=== PATIENT | male | born 1930 | race Caucasian/White ===

== ENCOUNTER → 2016-09-18 | Outpatient (CLI) | payer MEDICARE, BC ==
--- NOTE | 2016-09-18 11:10 | CT ---
EXAMINATION TYPE: CT brain neck chest wo con DATE OF EXAM: 09/18/2016 10:37 AM HISTORY: Neck and Head CA Helical acquisition obtained through the brain neck and chest without contrast, correlation to CT PET scan dated 2014 CT DLP: 2414 mGycm Automated exposure control for dose reduction was used. FINDINGS: Brain: There is white matter demyelination in the periventricular locations. Cortical atrophy is pres ent. No hemorrhage, there is prominence of the ventricles. Difficult to exclude normal pressure hydro cephalus although findings may be due to cortical atrophy and are stable. The calvarium is intact. Pa ranasal sinuses and mastoid air cells as visualized are unremarkable. There is an open wound at the s uperior orbital scalp on the left extending into the frontal region. Difficult to exclude a small foc us of bone erosion at this level. NECK: No evident adenopathy. Lack of contrast could compromise sensitivity. Level the true and false cords are within normal limits. Salivary gland show a symmetric appearance. Degenerative disc changes are present in the visualized spine. Atherosclerotic vascular calcifications are noted along the dis tribution of the carotid arteries. Thyroid gland is somewhat heterogeneous. There is some streak benny fact due to dental work, the previously identified adenopathy deep to the sternocleidomastoid muscle on the left is no longer evident. CHEST: Mediastinal nodes are borderline enlarged in the right paratracheal location. Coronary artery calcifications are present. No pleural or pericardial effusion. Patient is post median sternotomy. Em physematous changes are present within the lungs. Ill-defined area of increased attenuation present i n the right upper lobe laterally on axial image 22 is stable. Calcified granuloma present in the righ t mid lung as on prior exam. Some basilar atelectatic change or scarring present on the left. IMPRESSION: MEDIASTINAL NODES MAY GROW SLIGHTLY IN THE INTERVAL ALTHOUGH THERE ARE DIFFERENCES IN TECHNIQUE. INTE RVAL IMPROVEMENT IN THE LEFT-SIDED NECK NODE. LOCAL FINDINGS AT THE LEVEL OF THE PATIENT'S OPEN WOUND IN THE SUPRAORBITAL REGION, ADDITIONAL FINDINGS ABOVE.
== END | disposition home or self-care (01) ==
LOC: RADCTMAIN 10:06
PROVIDERS: ATTEND Internal Medicine Hematology & Oncology
DX: C76.0 Malignant neoplasm of head, face and neck (principal)
CPT/HCPCS: 70450; 70490; 71250

== ENCOUNTER 2016-12-15 17:06 | Inpatient (IN) | payer MEDICARE, BC ==
[2016-12-15] MEDS ORDERED: SODIUM CHLORIDE 0.9% 1,000 ML IV STA (17:10)
--- NOTE | 2016-12-15 17:29 | ED ---
General Adult HPI - General Stated complaint: weakness Time Seen by Provider: 12/15/16 17:10 Source: RN notes reviewed, old records reviewed - History of Present Illness Initial comments: This is a patient to ED co significant weakness, juan m is poor historian brought in by EMS for evaluation of weaknss, history is obtained by EMS and patients chart - Related Data Home Medications Medication Instructions Recorded Confirmed Rivaroxaban [Xarelto] 15 mg PO HS 12/15/16 12/15/16 Previous Rx's Medication Instructions Recorded Aspirin EC [Ecotrin Low Dose] 81 mg PO DAILY #30 tablet. 02/08/14 Carvedilol [Coreg] 3.125 mg PO AC-BID #90 tab 02/08/14 Furosemide [Lasix] 40 mg PO DAILY #30 tab 02/08/14 Isosorbide Mononitrate [Imdur] 30 mg PO DAILY #30 tab 02/08/14 Lisinopril [Zestril] 5 mg PO DAILY #30 tab 02/08/14 Spironolactone [Aldactone] 25 mg PO DAILY #30 tab 02/08/14 Allergies Allergy/AdvReac Type Severity Reaction Status Date / Time iodine Allergy Severe Anaphylaxis Verified 12/15/16 17:29 shellfish derived Allergy Severe Anaphylaxis Verified 12/15/16 17:29 Review of Systems ROS Statement: Those systems with pertinent positive or pertinent negative responses have been documented in the HPI. ROS Other: All systems not noted in ROS Statement are negative. Past Medical History Past Medical History: Coronary Artery Disease (CAD), Myocardial Infarction ([place]) Last Myocardial Infarction Date:: 1981 History of Any Multi-Drug Resistant Organisms: None Reported Past Surgical History: Coronary Bypass/CABG Past Anesthesia/Blood Transfusion Reactions: No Reported Reaction Past Psychological History: No Psychological Hx Reported Smoking Status: Never smoker Past Alcohol Use History: None Reported Past Drug Use History: None Reported - Past Family History Father Family Medical History: No Reported History General Exam General appearance: alert, in no apparent distress, lethargic Head exam: Present: atraumatic, normocephalic, normal inspection Eye exam: Present: normal appearance, PERRL, EOMI. Absent: scleral icterus, conjunctival injection, periorbital swelling ENT exam: Present: normal exam, mucous membranes moist Neck exam: Present: normal inspection. Absent: tenderness, meningismus, lymphadenopathy Respiratory exam: Present: normal lung sounds bilaterally. Absent: respiratory distress, wheezes, rales, rhonchi, stridor Cardiovascular Exam: Present: regular rate, normal rhythm, normal heart sounds. Absent: systolic murmur, diastolic murmur, rubs, gallop, clicks GI/Abdominal exam: Present: soft, normal bowel sounds. Absent: distended, tenderness, guarding, rebound, rigid Extremities exam: Present: normal inspection, full ROM, normal capillary refill. Absent: tenderness, pedal edema, joint swelling, calf tenderness Back exam: Present: normal inspection Neurological exam: Present: alert, oriented X3, CN II-XII intact Psychiatric exam: Present: normal affect, normal mood Skin exam: Present: warm, dry, intact, normal color. Absent: rash Course Vital Signs 12/15/16 12/15/16 12/15/16 17:29 17:55 19:12 Temperature 97.8 F Pulse Rate 79 71 77 Respiratory 20 20 20 Rate Blood Pressure 155/94 119/88 121/69 O2 Sat by Pulse 95 97 98 Oximetry - Reevaluation(s) Reevaluation #1: 12/15/16 20:16 Concerned patient's multiple falls left rib pain increasing weakness and. Denies chest pain shortness of breath, patient also had syncopal event 12/15/16 20:20 He does state patient is single 2 days ago and again today when he was found on the ground by family and unable to get himself off the ground and sure how long he was down EKG Findings - EKG Comments: EKG Findings:: EKG shows sinus rhythm rate of 84, AR 170, QRS of 80, QTc 522 Medical Decision Making - Medical Decision Making 86 year for evaluation of syncope, multiple falls, weakness and inability to ambulate per her baseline, patient doesn't elevated troponin, dehydration, patient be admitted for rehydration and cardiac observation telemetry. - Lab Data Result diagrams: 12/15/16 17:25 12/15/16 17:25 Lab Results 12/15/16 12/15/16 12/15/16 Range/Units 17:25 17:25 17:25 WBC 7.5 (3.8-10.6) k/uL RBC 4.66 (4.30-5.90) m/uL Hgb 14.3 (13.0-17.5) gm/dL Hct 43.5 (39.0-53.0) % MCV 93.3 (80.0-100.0) fL MCH 30.7 (25.0-35.0) pg MCHC 32.9 (31.0-37.0) g/dL RDW 13.0 (11.5-15.5) % Plt Count 224 (150-450) k/uL Neutrophils % 83 % Lymphocytes % 6 % Monocytes % 7 % Eosinophils % 1 % Basophils % 1 % Neutrophils # 6.3 (1.3-7.7) k/uL Lymphocytes # 0.5 L (1.0-4.8) k/uL Monocytes # 0.5 (0-1.0) k/uL Eosinophils # 0.1 (0-0.7) k/uL Basophils # 0.0 (0-0.2) k/uL PT (9.0-12.0) sec INR (<1.1) APTT (22.0-30.0) sec Sodium 140 (137-145) mmol/L Potassium 4.9 (3.5-5.1) mmol/L Chloride 106 (98-107) mmol/L Carbon Dioxide 23 (22-30) mmol/L Anion Gap 11 mmol/L BUN 45 H (9-20) mg/dL Creatinine 1.61 H (0.66-1.25) mg/dL Est GFR (MDRD) Af Amer 49 (>60 ml/min/1.73 sqM) Est GFR (MDRD) Non-Af 41 (>60 ml/min/1.73 sqM) Glucose 97 (74-99) mg/dL Plasma Lactic Acid [place] (0.7-2.0) mmol/L Calcium 9.5 (8.4-10.2) mg/dL Phosphorus 3.1 (2.5-4.5) mg/dL Magnesium 2.2 (1.6-2.3) mg/dL Total Bilirubin 1.2 (0.2-1.3) mg/dL AST 23 (17-59) U/L ALT 19 L (21-72) U/L Alkaline Phosphatase 77 (38-126) U/L Total Creatine Kinase 86 (55-170) U/L CK-MB (CK-2) 1.5 (0.0-2.4) ng/mL CK-MB (CK-2) Rel Index 1.7 Troponin I 0.066 H* (0.000-0.034) ng/mL NT-Pro-B Natriuret Pep pg/mL Total Protein 7.9 (6.3-8.2) g/dL Albumin 4.0 (3.5-5.0) g/dL TSH 2.300 (0.465-4.680) mIU/L Urine Color Urine Appearance (Clear) Urine pH (5.0-8.0) Ur Specific [place] (1.001-1.035) Urine Protein (Negative) Urine Glucose (UA) (Negative) Urine Ketones (Negative) Urine Blood (Negative) Urine Nitrite (Negative) Urine Bilirubin (Negative) Urine Urobilinogen (<2.0) mg/dL Ur Leukocyte Esterase (Negative) 12/15/16 12/15/16 12/15/16 Range/Units 17:25 17:25 17:25 WBC (3.8-10.6) k/uL RBC (4.30-5.90) m/uL Hgb (13.0-17.5) gm/dL Hct (39.0-53.0) % MCV (80.0-100.0) fL MCH (25.0-35.0) pg MCHC (31.0-37.0) g/dL RDW (11.5-15.5) % Plt Count (150-450) k/uL Neutrophils % % Lymphocytes % % Monocytes % % Eosinophils % % Basophils % % Neutrophils # (1.3-7.7) k/uL Lymphocytes # (1.0-4.8) k/uL Monocytes # (0-1.0) k/uL Eosinophils # (0-0.7) k/uL Basophils # (0-0.2) k/uL PT 11.1 (9.0-12.0) sec INR 1.1 (<1.1) APTT 23.1 (22.0-30.0) sec Sodium (137-145) mmol/L Potassium (3.5-5.1) mmol/L Chloride (98-107) mmol/L Carbon Dioxide (22-30) mmol/L Anion Gap mmol/L BUN (9-20) mg/dL Creatinine (0.66-1.25) mg/dL Est GFR (MDRD) Af Amer (>60 ml/min/1.73 sqM) Est GFR (MDRD) Non-Af (>60 ml/min/1.73 sqM) Glucose (74-99) mg/dL Plasma Lactic Acid [place] 1.5 (0.7-2.0) mmol/L Calcium (8.4-10.2) mg/dL Phosphorus (2.5-4.5) mg/dL Magnesium (1.6-2.3) mg/dL Total Bilirubin (0.2-1.3) mg/dL AST (17-59) U/L ALT (21-72) U/L Alkaline Phosphatase (38-126) U/L Total Creatine Kinase (55-170) U/L CK-MB (CK-2) (0.0-2.4) ng/mL CK-MB (CK-2) Rel Index Troponin I (0.000-0.034) ng/mL NT-Pro-B Natriuret Pep 3490 pg/mL Total Protein (6.3-8.2) g/dL Albumin (3.5-5.0) g/dL TSH (0.465-4.680) mIU/L Urine Color Urine Appearance (Clear) Urine pH (5.0-8.0) Ur Specific [place] (1.001-1.035) Urine Protein (Negative) Urine Glucose (UA) (Negative) Urine Ketones (Negative) Urine Blood (Negative) Urine Nitrite (Negative) Urine Bilirubin (Negative) Urine Urobilinogen (<2.0) mg/dL Ur Leukocyte Esterase (Negative) 12/15/16 Range/Units 19:05 WBC (3.8-10.6) k/uL RBC (4.30-5.90) m/uL Hgb (13.0-17.5) gm/dL Hct (39.0-53.0) % MCV (80.0-100.0) fL MCH (25.0-35.0) pg MCHC (31.0-37.0) g/dL RDW (11.5-15.5) % Plt Count (150-450) k/uL Neutrophils % % Lymphocytes % % Monocytes % % Eosinophils % % Basophils % % Neutrophils # (1.3-7.7) k/uL Lymphocytes # (1.0-4.8) k/uL Monocytes # (0-1.0) k/uL Eosinophils # (0-0.7) k/uL Basophils # (0-0.2) k/uL PT (9.0-12.0) sec INR (<1.1) APTT (22.0-30.0) sec Sodium (137-145) mmol/L Potassium (3.5-5.1) mmol/L Chloride (98-107) mmol/L Carbon Dioxide (22-30) mmol/L Anion Gap mmol/L BUN (9-20) mg/dL Creatinine (0.66-1.25) mg/dL Est GFR (MDRD) Af Amer (>60 ml/min/1.73 sqM) Est GFR (MDRD) Non-Af (>60 ml/min/1.73 sqM) Glucose (74-99) mg/dL Plasma Lactic Acid [place] (0.7-2.0) mmol/L Calcium (8.4-10.2) mg/dL Phosphorus (2.5-4.5) mg/dL Magnesium (1.6-2.3) mg/dL Total Bilirubin (0.2-1.3) mg/dL AST (17-59) U/L ALT (21-72) U/L Alkaline Phosphatase (38-126) U/L Total Creatine Kinase (55-170) U/L CK-MB (CK-2) (0.0-2.4) ng/mL CK-MB (CK-2) Rel Index Troponin I (0.000-0.034) ng/mL NT-Pro-B Natriuret Pep pg/mL Total Protein (6.3-8.2) g/dL Albumin (3.5-5.0) g/dL TSH (0.465-4.680) mIU/L Urine Color Yellow Urine Appearance Clear (Clear) Urine pH 5.0 (5.0-8.0) Ur Specific [place] 1.017 (1.001-1.035) Urine Protein Negative (Negative) Urine Glucose (UA) Negative (Negative) Urine Ketones Negative (Negative) Urine Blood Negative (Negative) Urine Nitrite Negative (Negative) Urine Bilirubin Negative (Negative) Urine Urobilinogen <2.0 (<2.0) mg/dL Ur Leukocyte Esterase Negative (Negative) - Radiology Data Radiology results: report reviewed (CT brain, chest x-ray, pelvis x-ray and rib x-ray are negative for trichomoniasis injury), image reviewed Critical Care Time Critical Care Time: Yes Total Critical Care Time: 31 Disposition Clinical Impression: Weakness, Falls, NSTEMI (non-ST elevated myocardial infarction), Syncope Disposition: ADMITTED IP TO THIS [facility] Condition: Fair Referrals: Rich Og MD [Primary Care Provider] - 1-2 days
[2016-12-15 17:39] LABS: Basophils % (A) 1 %; CH 30.6; CHCM 32.9; Eosinophils # (A) 0.1 k/uL (0-0.7); Eosinophils % (A) 1 %; HCT 43.5 % (39.0-53.0); HGB 14.3 gm/dL (13.0-17.5); Luc # (Auto) 0.13; Luc % (Auto) 2; Lymphocytes # (A) 0.5 k/uL (1.0-4.8); Lymphocytes % (A) 6 %; MCH 30.7 pg (25.0-35.0); MCHC 32.9 g/dL (31.0-37.0); MCV 93.3 fL (80.0-100.0); Mean Platelet Volume 7.5; Monocytes # (A) 0.5 k/uL (0-1.0); Monocytes % (A) 7 %; Neutrophils # (A) 6.3 k/uL (1.3-7.7); Neutrophils % (A) 83 %; RBC 4.66 m/uL (4.30-5.90); WBC 7.5 k/uL (3.8-10.6); WBC (Perox) 7.51
[2016-12-15 17:49] LABS: Calcium 9.5 mg/dL (8.4-10.2); INR 1.1 (<1.1); Magnesium 2.2 mg/dL (1.6-2.3); Partial Thromboplastin Time 23.1 sec (22.0-30.0); Phosphorous 3.1 mg/dL (2.5-4.5); Potassium 4.9 mmol/L (3.5-5.1); Prothrombin Time 11.1 sec (9.0-12.0); Total Bilirubin 1.2 mg/dL (0.2-1.3); Total Protein 7.9 g/dL (6.3-8.2)
--- NOTE | 2016-12-15 17:55 | XR ---
EXAMINATION TYPE: XR chest 2V DATE OF EXAM: 12/15/2016 5:42 PM COMPARISON: Prior chest x-ray dated 07 February 2014 HISTORY: Chest pain, shortness of breath, fall TECHNIQUE: Frontal and lateral views of the chest are obtained. FINDINGS: Patient is post median sternotomy and rotated. There are overlying cardiac leads. Heart is enlarged and stable. No pneumothorax or pleural effusion evident. Prominent lung volume may be indic ative of COPD. There are coronary artery calcifications. IMPRESSION: No acute cardiopulmonary disease. Bone scan may be of increased sensitivity.
[2016-12-15 18:15] LABS: Creatine Kinase MB 1.5 ng/mL (0.0-2.4)
[2016-12-15 18:24] LABS: Troponin I 0.066 ng/mL (0.000-0.034)
--- NOTE | 2016-12-15 18:28 | CT ---
EXAMINATION TYPE: CT brain wo con DATE OF EXAM: 12/15/2016 6:16 PM COMPARISON: Prior head CT 18 September 2016 HISTORY: Recent falls x2. CT DLP: 943.8 mGycm Automated exposure control for dose reduction was used. FINDINGS: There is no acute intracranial hemorrhage, mass effect, or midline shift identified. The ventricles and sulci are stable in size. Cortical atrophy is again noted, ventricles remain prominent, there is periventricular white matter demyelination as on prior exam, difficult to exclude normal pressure hy drocephalus. The globes are intact and the visualized sinuses are clear. IMPRESSION: No acute intracranial hemorrhage, mass effect, or midline shift is seen. Findings described above.
[2016-12-15 19:30] LABS: Appearance,Urine Clear (Clear); Bilirubin,Urine Negative (Negative); Glucose,Urine (UA) Negative (Negative); Ketones,Urine Negative (Negative); Leukocyte Esterase,Urine Negative (Negative); Nitrite,Urine Negative (Negative); Protein,Urine Negative (Negative); Specific Gravity,Urine 1.017 (1.001-1.035); UA Billing (MACRO vs. MICRO) CHEM; Urobilinogen,Urine <2.0 mg/dL (<2.0)
--- NOTE | 2016-12-15 20:03 | XR ---
AP pelvis HISTORY: Trauma, pain Single frontal view of the pelvis No comparisons Bone mineralization is reduced. Vascular calcifications are noted within the pelvis. Surgical clip pr esent within the soft tissues of the proximal left lower extremity. Alignment and joint spaces are ma intained. Degenerative disc changes in the visualized spine. IMPRESSION: No acute fracture or dislocation is evident. Follow-up as indicated. Osteopenia. Degenera tive disc disease.
--- NOTE | 2016-12-15 20:06 | XR ---
Left RIBS HISTORY: Trauma and pain 4 views of the left ribs correlated to prior chest x-ray 15 December 2016 No significant interval change. Bone mineralization is reduced. This may limit sensitivity. No displa haritha rib fracture is evident. IMPRESSION: Consider bone scan for increased sensitivity as indicated should occult fracture be suspe cted clinically.
[2016-12-15] MEDS ORDERED: HEPARIN SODIUM,PORCINE 5,000 UNIT/ML 1 ML VIAL IV ONE (20:11)
[2016-12-15] MEDS ORDERED: NITROGLYCERIN SL TABS 0.4 MG TAB SUBLINGUAL PRN (20:11)
[2016-12-15] MEDS ORDERED: HEPARIN SODIUM,PORCINE 5,000 UNIT/ML 1 ML VIAL IV PRN (20:11)
[2016-12-15] MEDS ORDERED: ASPIRIN 81 MG CHEW PO STA (20:11)
[2016-12-15] MEDS ORDERED: HEPARIN SODIUM,PORCINE/D5W PMX 25,000 UNIT in DEXTROSE/WATER 1 500ML.BAG IV SCH (20:15)
[2016-12-15] MEDS ORDERED: MORPHINE SULFATE 4 MG/ML SYRINGE IVP PRN (20:21)
[2016-12-15] MEDS: MORPHINE SULFATE 4 MG/ML SYRINGE IV PRN (20:54)
[2016-12-15] MEDS: SODIUM CHLORIDE 0.9% 1,000 ML IV SCH (20:58)
[2016-12-15 22:34] VITALS: BMI 21.2
[2016-12-16 00:34] LABS: Creatine Kinase MB 1.4 ng/mL (0.0-2.4)
[2016-12-16 00:52] LABS: Troponin I 0.076 ng/mL (0.000-0.034)
[2016-12-16 06:22] LABS: Mean Platelet Volume 7.1
[2016-12-16 06:31] LABS: Cholesterol 133 mg/dL (<200); HDL Cholesterol 43 mg/dL (40-60); Triglycerides 61 mg/dL (<150)
[2016-12-16] MEDS: SODIUM CHLORIDE 0.9% 1,000 ML IV SCH ×3 (06:38→21:02)
[2016-12-16 06:56] LABS: Creatine Kinase MB 1.6 ng/mL (0.0-2.4)
[2016-12-16 07:02] LABS: Troponin I 0.077 ng/mL (0.000-0.034)
[2016-12-16] MEDS: ATORVASTATIN 80 MG TAB PO SCH (08:53)
[2016-12-16] MEDS ORDERED: ASPIRIN 325 MG TAB PO SCH (09:00)
--- NOTE | 2016-12-16 11:21 | P.CRDCN ---
History of Present Illness Consult date: 12/16/16 Requesting physician: Rich Og Consult reason: sycope Chief complaint: Syncope History of present illness: This is an 86-year-old gentleman with history of coronary artery disease and prior bypass surgery, paroxysmal atrial fibrillation, hypertension, hyperlipidemia, mild memory impairment, renal disease, history of squamous cell carcinoma with prior radiation, he presented to the hospital following 2 syncopal episodes. Most of the history was obtained from the daughter who is at the bedside. Patient apparently lives alone, he had an episode where he passed out suddenly on Friday, he did not mention any of this to his children, he again had an episode on Friday. According to the patient he is standing up when both episodes occurred, he denies any dizziness at the time, no lightheadedness, no chest discomfort, no warning prior to passing out at all. Patient was seen here in the hospital in 2013, an echo was done at that time which revealed an ejection fraction of less than 20%. Patient follows only with Dr. Og in the office. The pressure on arrival here 155/90 with a heart rate in the 70s to 80s, 95% on room air. EKG on arrival showed a normal sinus rhythm with first-degree AV block, right bundle branch block pattern and left anterior fascicular block. Occasional PACs. 6 ran admission did not reveal any acute cardiopulmonary disease. CAT scan of the brain did not reveal any acute intracranial hemorrhage, mass effect or midline shift. Pelvic x-ray did not reveal any acute fracture. Rib x-ray suggested consideration for bone scan for increased sensitivity, showed an occult fracture be suspected. CBC normal, potassium 4.9, BUN 45, creatinine 1.6. BNP 3490. Troponin 0.06.07.07. TSH 2.3. At the time of my examination this morning, patient denies any dizziness or lightheadedness. Past Medical History Past Medical History: Atrial Fibrillation, Coronary Artery Disease (CAD), Cancer , Heart Failure, Hyperlipidemia, Hypertension, Memory Impairment, Myocardial Infarction ([place]), Prostate Disorder, Renal Disease, Syncope Additional Past Medical History / Comment(s): Squamous-cell carcinoma left side of forehead, radiation therapy 2 years ago. Last Myocardial Infarction Date:: 1981 History of Any Multi-Drug Resistant Organisms: None Reported Past Surgical History: Coronary Bypass/CABG Past Anesthesia/Blood Transfusion Reactions: No Reported Reaction Past Psychological History: No Psychological Hx Reported Smoking Status: Never smoker Past Alcohol Use History: None Reported Past Drug Use History: None Reported - Past Family History Father Family Medical History: No Reported History Medications and Allergies Home Medications Medication Instructions Recorded Confirmed Type Rivaroxaban [Xarelto] 15 mg PO HS 12/15/16 12/15/16 History Allergies Allergy/AdvReac Type Severity Reaction Status Date / Time iodine Allergy Severe Anaphylaxis Verified 12/15/16 17:29 shellfish derived Allergy Severe Anaphylaxis Verified 12/15/16 17:29 Physical Exam Vitals: Vital Signs Temp Pulse Pulse Resp BP BP Pulse Ox 12/16/16 08:00 96.9 F L 65 18 130/71 96 12/16/16 04:00 97 F L 77 18 144/72 97 12/16/16 00:00 97 F L 67 18 147/67 97 12/15/16 21:30 97.5 F L 66 18 138/67 96 12/15/16 21:03 98 F 72 20 136/82 96 Intake and Output 12/15/16 12/16/16 12/16/16 22:59 06:59 14:59 Intake Total 1800 Output Total 400 Balance 1400 Intake: Intake, IV Titration 1800 Amount Sodium Chloride 0.9% 1, 800 000 ml @ 100 mls/hr IV . Q10H DANIELLA Rx#:[id number] Sodium Chloride 0.9% 1, 1000 000 ml @ 999 mls/hr IV . Q1H1M STA Rx#:[id number] Output: Urine/Stool Mix 400 Other: Voiding Method Bedside Commode Bedside Commode Urinal Urinal # Voids 0 # Bowel Movements 1 1 Weight 68.853 kg PHYSICAL EXAMINATION: HEENT: Head is atraumatic, normocephalic. Pupils equal, round. Neck is supple. There is no elevated jugular venous pressure. HEART EXAMINATION: R S1 and S2 systolic murmur is heard. CHEST EXAMINATION: Lungs are clear to auscultation and precussion. No chest wall tenderness is noted on palpation or with deep breathing. ABDOMEN: Soft, nontender. Bowel sounds are heard. No organomegaly noted. EXTREMITIES: 2+ peripheral pulses with no evidence of peripheral edema and no calf tenderness noted. NEUROLOGIC patient is awake, alert and oriented -3. . Results 12/16/16 06:05 12/15/16 17:25 Cardiac Enzymes 12/15/16 12/16/16 Range/Units 22:55 06:05 CK-MB (CK-2) 1.4 1.6 (0.0-2.4) ng/mL Troponin I 0.076 H* 0.077 H* (0.000-0.034) ng/mL Coagulation 12/16/16 Range/Units 01:38 APTT 25.7 (22.0-30.0) sec Lipids 12/16/16 Range/Units 06:05 Triglycerides 61 (<150) mg/dL Cholesterol 133 (<200) mg/dL HDL Cholesterol 43 (40-60) mg/dL CBC 12/16/16 Range/Units 06:05 Plt Count 187 (150-450) k/uL Current Medications Generic Name Dose Route Start Last Admin Trade Name Freq PRN Reason Stop Dose Admin Aspirin 81 mg 12/17/16 09:00 Aspirin PO DAILY [facility] Atorvastatin Calcium 80 mg 12/16/16 09:00 12/16/16 08:53 Lipitor PO 80 mg DAILY [facility] Administration Carvedilol 3.125 mg 12/16/16 10:00 Coreg PO AC-BID [facility] Sodium Chloride 1,000 mls @ 75 mls/hr 12/16/16 10:15 Saline 0.9% IV .[id number] [facility] Isosorbide Mononitrate 30 mg 12/16/16 10:00 Imdur PO DAILY [facility] Lisinopril 5 mg 12/16/16 10:15 Zestril PO DAILY [facility] Morphine Sulfate 4 mg 12/15/16 20:11 12/15/16 20:54 Morphine Sulfate (Inj) IV 4 mg Q4HR PRN Administration Chest Pain Morphine Sulfate 4 mg 12/15/16 20:21 Morphine Sulfate (Inj) IVP Q4HR PRN Pain Nitroglycerin 0.4 mg 12/15/16 20:11 Nitrostat SUBLINGUAL Q5M PRN Chest Pain Rivaroxaban 15 mg 12/16/16 21:00 Xarelto PO [facility] Intake and Output 12/15/16 12/16/16 12/16/16 22:59 06:59 14:59 Intake Total 1800 Output Total 400 Balance 1400 Intake: Intake, IV Titration 1800 Amount Sodium Chloride 0.9% 1, 800 000 ml @ 100 mls/hr IV . Q10H [facility] Rx#:[id number] Sodium Chloride 0.9% 1, 1000 000 ml @ 999 mls/hr IV . Q1H1M STA Rx#:[id number] Output: Urine/Stool Mix 400 Other: Voiding Method Bedside Commode Bedside Commode Urinal Urinal # Voids 0 # Bowel Movements 1 1 Weight 68.853 kg 12/16/16 06:05 EKG Interpretations (text) EKG shows normal sinus rhythm with first-degree AV block and right bundle branch block pattern and left anterior fascicular block, occasional PAC Assessment and Plan Plan: Assessment and plan # 1 syncope, we will check the patient's orthostatics, we will also continue to monitor for any tachycardia or bradycardia arrhythmias. #2 known history of coronary artery disease with prior bypass surgery #3 ischemic cardiomyopathy #4 hypertension #5 hyperlipidemia #6 mild memory impairment #7 history of squamous cell carcinoma on the forehead, with prior radiation. #8 acute on chronic renal disease #9 paroxysmal atrial fibrillation #10 abnormal troponins, not consistent with acute coronary syndrome. Plan We will repeat an echocardiogram with Doppler study. We will check orthostatic blood pressure and heart rate every shift, continue to monitor for any tachycardia or bradycardia arrhythmias. If patient does require a pacemaker, this may be considered, because of the patient's age, he is not felt to be a candidate for AICD at this time. We will maximize his medical therapy. Daughter is also requesting a consult with social service as the patient lives alone and she feels he is unsafe there. We will continue aspirin 81 mg daily, Lipitor 80 mg daily, Coreg 3.125 mg twice a day, Imdur 30 mg daily, lisinopril 5 mg daily, and xarelto. DNP note has been reviewed, I agree with a documented findings and plan of care. Patient was seen and examined.
[2016-12-16] MEDS: CARVEDILOL 3.125 MG TAB PO SCH ×2 (11:41→18:00)
[2016-12-16] MEDS: LISINOPRIL 5 MG TAB PO SCH (11:41)
[2016-12-16] MEDS: ISOSORBIDE MONONITRATE ER 30 MG TAB.ER.24H PO SCH (11:41)
--- NOTE | 2016-12-16 12:10 | ECHOF ---
Referral Reason:LVF MEASUREMENTS -------- HEIGHT: 157.5 cm WEIGHT: 68.5 kg BP: 130/71 RVIDd: 2.8 cm (< 3.3) IVSd: 1.1 cm (0.6 - 1.1) LVIDd: 6.2 cm (3.9 - 5.3) LVPWd: 0.8 cm (0.6 - 1.1) IVSs: 1.3 cm LVIDs: 4.4 cm LVPWs: 1.2 cm LA Diam: 3.5 cm (2.7 - 3.8) Ao Diam: 3.4 cm (2.0 - 3.7) AV Cusp: 1.6 cm (1.5 - 2.6) LA Diam: 4.3 cm (2.7 - 3.8) MV EXCURSION: 19.089 mm (> 18.000) MV EF SLOPE: 62 mm/s (70 - 150) EPSS: 1.9 cm MV E Oleg: 0.26 m/s MV DecT: 203 ms MV A Oleg: 0.58 m/s MV E/A Ratio: 0.45 RAP: 5.00 mmHg RVSP: 18.23 mmHg FINDINGS -------- Sinus rhythm. This was a techncally difficult study with suboptimal views, , Definity utilized for enhancement of images. There is mild concentric left ventricular hypertrophy. There is severe global hypokinesis of LV . Overall left ventricular systolic function is moderate-severely impaired with, an EF between 30 - 35 %. The right ventricle is normal in size. The left atrial size is normal. The right atrial size is normal. 1.5MG OF DEFINITY UTLIZED: 2 OR MORE WALL SEGMENTS NOT VISUALIZED. There is mild aortic valve sclerosis. There is no evidence of aortic regurgitation. Mild mitral annular calcification present. Mild mitral regurgitation is present. Mild tricuspid regurgitation present. The right ventricular systolic pressure, as measured by Doppler, is 18.23mmHg. There is no pulmonic regurgitation present. The aortic root size is normal. There is no pericardial effusion. CONCLUSIONS -------- 1. This was a techncally difficult study with suboptimal views, , Definity utilized for enhancement of images. 2. There is no pericardial effusion. 3. There is mild concentric left ventricular hypertrophy. 4. 1.5MG OF DEFINITY UTLIZED: 2 OR MORE WALL SEGMENTS NOT VISUALIZED. 5. There is mild aortic valve sclerosis. 6. Mild mitral annular calcification present. 7. Mild mitral regurgitation is present. 8. Mild tricuspid regurgitation present. 9. The right ventricular systolic pressure, as measured by Doppler, is 18.23mmHg. 10. The aortic root size is normal. [employer] SUPERVISOR: Vera Ambriz RDCS
--- NOTE | 2016-12-16 13:27 | P.HPIM ---
History of Present Illness H&P Date: 12/16/16 Chief Complaint: Syncope This is an 86-year-old male one of Dr. Og with a previous medical history significant for CAD post CABG 3 back in 1997, with ischemic cardiopathy , chronic atrial fibrillation, hyperlipidemia, hypertension and hypertensive cardio vascular disease, memory impairment, possible prostate cancer, patient lives alone and he gets some help from his family members including his daughter , patient stated that on Friday he was standing in the kitchen is back to the [employer] and suddenly he passed out without any warning symptoms he was not dizzy or lightheaded at that time. Patient lost consciousness for a few seconds and he found himself on the floor he ended up the skinning his left knee and left elbow, and that time his daughter wanted to bring into the emergency department on Friday evening however the patient refused, patient did well after 48 hours until yesterday when he developed to have his another syncopal episode while standing up without any dizziness or lightheadedness at that time. Without any palpitation he came to the ER and he had some significant pain in the left rib cage, x-ray did not show any evidence of any fracture however the patient was admitted to hospital for possible cardiac arrhythmias. His troponin was slightly elevated however did not appear to have an acute coronary syndrome. Review of Systems Constitutional: Reports malaise, Reports weakness, Reports weight loss, Denies anorexia, Denies chronic headaches, Denies chronic pain, Denies lethargy Eyes: bilateral blurred vision, bilateral decreased vision, denies bulging eye Ears: bilateral: decreased hearing Ears, nose, mouth and throat: Denies dysphagia, Denies neck lump, Denies sore throat, Denies vertigo Cardiovascular: Reports decreased exercise tolerance, Reports dyspnea on exertion, Reports high blood pressure, Reports irregular heart beat, Reports shortness of breath, Reports syncope, Denies chest pain, Denies phlebitis, Denies rapid heart beat Respiratory: Denies congestion, Denies cough, Denies cough with sputum, Denies home oxygen, Denies sleep apnea, Denies snoring, Denies wheezing Gastrointestinal: Denies abdominal pain, Denies bloating, Denies BRBPR, Denies excessive gas, Denies heartburn, Denies hematemesis, Denies melena, Denies nausea, Denies vomiting Genitourinary: Reports nocturia, Reports polyuria, Denies dysuria, Denies hematuria Musculoskeletal: Reports atrophy, Reports frequent falls, Reports gait dysfunction, Reports low back pain Musculoskeletal: absent: ankle pain, ankle stiffness, ankle swelling, elbow pain , elbow stiffness, elbow swelling, foot pain, foot stiffness, foot swelling, hand pain, hand stiffness, hand swelling, hip pain, hip stiffness, hip swelling , knee pain, knee stiffness, knee swelling, shoulder pain, shoulder stiffness, shoulder swelling, wrist pain, wrist stiffness, wrist swelling Integumentary: Denies pruritus, Denies rash Neurological: Reports gait dysfunction, Reports memory loss, Reports weakness, Denies numbness Psychiatric: Reports memory loss, Denies anxiety, Denies depression Endocrine: Denies fatigue, Denies weight change Past Medical History Past Medical History: Atrial Fibrillation, Coronary Artery Disease (CAD), Cancer , Heart Failure, Hearing Disorder / Deafness, Hyperlipidemia, Hypertension, Memory Impairment, Myocardial Infarction ([place]), Osteoarthritis (OA), Prostate Disorder, Renal Disease, Syncope Additional Past Medical History / Comment(s): Squamous-cell carcinoma left side of forehead, radiation therapy 2 years ago. Last Myocardial Infarction Date:: 1981 History of Any Multi-Drug Resistant Organisms: None Reported Past Surgical History: Coronary Bypass/CABG (Patient did have a CABG back in 11/1997, also did have a squamous cell resection from the left side of the for head followed by radiation therapy but years ago.) Past Anesthesia/Blood Transfusion Reactions: No Reported Reaction Past Psychological History: No Psychological Hx Reported Smoking Status: Never smoker Past Alcohol Use History: None Reported Past Drug Use History: None Reported - Past Family History Father Family Medical History: No Reported History (Father at age of 34 from suicide) Mother Family Medical History: Myocardial Infarction ([place]) (Mother at age of 87 from [place]) Brother(s) Family Medical History: Cancer, Coronary Artery Disease (CAD) (Patient had 2 brothers one from diabetes competition the other one from CAD the third one had CAD but he passed from prostate cancer.), Diabetes Mellitus Sister(s) Family Medical History: No Reported History (Patient had 2 sisters one of them at age of 16 from suicide) Medications and Allergies Home Medications Medication Instructions Recorded Confirmed Type Rivaroxaban [Xarelto] 15 mg PO HS 12/15/16 12/15/16 History Allergies Allergy/AdvReac Type Severity Reaction Status Date / Time iodine Allergy Severe Anaphylaxis Verified 12/15/16 17:29 shellfish derived Allergy Severe Anaphylaxis Verified 12/15/16 17:29 Physical Exam Vitals: Vital Signs Temp Pulse Pulse Resp BP BP Pulse Ox 12/16/16 12:00 65 18 12/16/16 08:00 96.9 F L 65 18 130/71 96 12/16/16 04:00 97 F L 77 18 144/72 97 12/16/16 00:00 97 F L 67 18 147/67 97 12/15/16 21:30 97.5 F L 66 18 138/67 96 12/15/16 21:03 98 F 72 20 136/82 96 Intake and Output 12/15/16 12/16/16 12/16/16 22:59 06:59 14:59 Intake Total 1800 Output Total 400 Balance 1400 Intake: Intake, IV Titration 1800 Amount Sodium Chloride 0.9% 1, 800 000 ml @ 100 mls/hr IV . Q10H [facility] Rx#:[id number] Sodium Chloride 0.9% 1, 1000 000 ml @ 999 mls/hr IV . Q1H1M [facility] Rx#:[id number] Output: Urine/Stool Mix 400 Other: Voiding Method Bedside Commode Bedside Commode Urinal Urinal # Voids 0 # Bowel Movements 1 1 Weight 68.853 kg - Constitutional General appearance: disheveled, mild distress, thin - EENT Eyes: anicteric sclerae, EOMI, PERRLA, no ptosis, no scleral icterus, normal appearance ENT: hard of hearing, NA/AT, normal oropharynx, no thrush Ears: bilateral: normal - Neck Neck: no lymphadenopathy, normal ROM, no rigidity, no stridor, no thyromegaly Carotids: bilateral: upstroke delayed Thyroid: bilateral: normal size - Respiratory Respiratory: bilateral: diminished, negative: dullness, rales, rhonchi, wheezing , prolonged expiration, prolonged inspiration - Cardiovascular Rhythm: irregularly irregular Heart sounds: normal: S1, S2 Abnormal Heart Sounds: systolic murmur, no rub, no click - Gastrointestinal General gastrointestinal: normal bowel sounds, soft, no splenomegaly, no tenderness, no umbilical hernia, no ventral hernia - Genitourinary Male genitourinary: enlarged prostate - Integumentary Integumentary: normal, normal turgor - Neurologic Neurologic: CNII-XII intact - Musculoskeletal Musculoskeletal: generalized weakness, strength equal bilaterally - Psychiatric Psychiatric: A&O x's 3, appropriate affect, intact judgment & insight Results CBC & Chem 7: 12/16/16 06:05 12/15/16 17:25 Labs: Abnormal Lab Results - Last 24 Hours (Table) 12/15/16 12/16/16 Range/Units 22:55 06:05 Troponin I 0.076 H* 0.077 H* (0.000-0.034) ng/mL Thrombosis Risk Factor Assmnt - DVT/VTE Prophylaxis DVT/VTE Prophylaxis: Pharmacologic Prophylaxis ordered, Mechanical Prophylaxis ordered - Choose All That Apply Any of the Below Risk Factors Present?: Yes Each Factor Represents 1 point: Heart failure (<1month), Medical pt on bed rest Other Risk Factors: Yes Each Risk Factor Represents 3 Points: Age 75 years or older Thrombosis Risk Factor Assessment Total Risk Factor Score: 5 Thrombosis Risk Factor Assessment Level: High Risk Assessment and Plan Plan: Assessment and plan: 1. Syncope likely related to cardiac arrhythmias. Patient does appear to have a sinus rhythm with first degree AV block, patient is not a candidate for AICD because of his age at this time we'll monitor the patient very closely, we will check echocardiogram as well as ultrasound of the carotid. Cardiology consult. 2. CAD post CABG with ischemic cardiomyopathy. Continue aspirin 81 mg once every day, Lipitor 80 mg orally once every day, Imdur 30 mg orally once every day, Zestril 5 mg orally once every day and Coreg 3.125 mg orally twice every day. 3. Hypertension and hypertensive cardiovascular disease. Continue with Coreg 3.125 mg orally twice every day, Zestril 5 mg orally once every day. 4. Hyperlipidemia. Continue Lipitor 80 mg orally once every day. 5. Chronic atrial flutter ablation. Continue Xarelto 15 mg orally once every day. 6. 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 7. Possible prostate cancer. Watchful waiting. 8. Acute kidney injury and top of chronic kidney disease stage III. He shouldn 't receive IV fluid resuscitation overnight and we'll Hep-Lock his IV. 9. DVT prophylaxis. Currently on Xarelto 15 mg orally once every day. 10. GI prophylaxis. Continue PPI. 11. 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 12. Macular degeneration. Stable at this time. 13. Debility. Physical therapy evaluation. 14. Patient is no code. discussed with the patient and his daughter at the bedside. 15. Admit to inpatient. Estimate a length of stay 2 midnights.
[2016-12-16] MEDS: MORPHINE SULFATE 4 MG/ML SYRINGE IV PRN (14:38)
--- NOTE | 2016-12-16 16:59 | US ---
EXAMINATION TYPE: US carotid duplex BILAT DATE OF EXAM: 12/16/2016 4:46 PM COMPARISON: NONE CLINICAL HISTORY: 86-year-old male LVF. Syncope. TECHNIQUE: Carotid duplex ultrasound examination. In direct Doppler criteria was utilized. FINDINGS: Very mild atherosclerotic changes are present at the bifurcations. EXAM MEASUREMENTS: RIGHT: Peak Systolic Velocity (PSV) cm/sec ----- Right CCA: 75.6 ----- Right ICA: 55.5 ----- Right ECA: 73.0 ICA/CCA ratio: 0.7 RIGHT: End Diastole cm/sec ----- Right CCA: 17.1 ----- Right ICA: 18.0 ----- Right ECA: 5.9 LEFT: Peak Systolic Velocity (PSV) cm/sec ----- Left CCA: 64.5 ----- Left ICA: 68.9 ----- Left ECA: 75.9 ICA/CCA ratio: 1.1 LEFT: End Diastole cm/sec ----- Left CCA: 12.8 ----- Left ICA: 24.9 ----- Left ECA: 3.9 VERTEBRALS (direction of flow): Right Vertebral: Antegrade Left Vertebral: Antegrade IMPRESSION: No hemodynamically significant stenosis appreciated in either internal carotid artery. Criteria for Assigning % of Stenosis / Diameter reduction (Estimation based on the indirect measurements of the internal carotid artery velocities (ICA PSV). 1. Normal (no stenosis)=ICA PSV < 125 cm/s: ratio < 2.0: ICA EDV<40 cm/s. 2. Less than 50% stenosis=ICA PSV < 125 cm/s: ratio < 2.0: ICA EDV<40 cm/s. 3. 50 to 69% stenosis=ICA PSV of 125 to 230 cm/s: ration 2.0 ? 4.0: ICA EDV 40-100 cm/s. 4. Greater than 70% stenosis to near occlusion= ICA PSV > 230 cm/s: ratio > 4.0: ICA EDV > 100 cm/s. 5. Near occlusion= ICA PSV velocities may be low or undetectable: variable ratio and ICA EDV. 6. Total occlusion=unable to detect flow.
[2016-12-16] MEDS: RIVAROXABAN 15 MG TAB PO SCH (21:02)
[2016-12-17] MEDS: MORPHINE SULFATE 4 MG/ML SYRINGE IV PRN (02:19)
[2016-12-17 02:21] LABS: Glucose,Whole Blood 89 mg/dL (75-99)
[2016-12-17 02:41] LABS: Basophils % (A) 0 %; CHCM 31.6; Eosinophils # (A) 0.2 k/uL (0-0.7); Eosinophils % (A) 3 %; HCT 38.9 % (39.0-53.0); HDW 2.35; HGB 12.4 gm/dL (13.0-17.5); Luc # (Auto) 0.18; Luc % (Auto) 3; Lymphocytes # (A) 0.9 k/uL (1.0-4.8); Lymphocytes % (A) 13 %; MCH 30.4 pg (25.0-35.0); MCHC 31.8 g/dL (31.0-37.0); MCV 95.4 fL (80.0-100.0); Mean Platelet Volume 6.9; Monocytes # (A) 0.5 k/uL (0-1.0); Monocytes % (A) 7 %; Neutrophils # (A) 5.1 k/uL (1.3-7.7); Neutrophils % (A) 73 %; RBC 4.08 m/uL (4.30-5.90); RDW 13.1 % (11.5-15.5); WBC 6.9 k/uL (3.8-10.6); WBC (Perox) 7.56
[2016-12-17 06:39] LABS: Basophils % (A) 0 %; CHCM 32.2; Eosinophils # (A) 0.2 k/uL (0-0.7); Eosinophils % (A) 3 %; HCT 35.2 % (39.0-53.0); HDW 2.51; HGB 11.6 gm/dL (13.0-17.5); Luc # (Auto) 0.18; Luc % (Auto) 3; Lymphocytes # (A) 0.5 k/uL (1.0-4.8); Lymphocytes % (A) 9 %; MCH 30.8 pg (25.0-35.0); MCV 93.5 fL (80.0-100.0); Mean Platelet Volume 6.8; Monocytes # (A) 0.4 k/uL (0-1.0); Monocytes % (A) 8 %; Neutrophils # (A) 4.5 k/uL (1.3-7.7); Neutrophils % (A) 77 %; RBC 3.77 m/uL (4.30-5.90); RDW 12.8 % (11.5-15.5); WBC 5.8 k/uL (3.8-10.6); WBC (Perox) 5.71
[2016-12-17] MEDS: CARVEDILOL 3.125 MG TAB PO SCH ×2 (06:39→16:58)
[2016-12-17 06:47] LABS: Calcium 8.6 mg/dL (8.4-10.2); Magnesium 1.9 mg/dL (1.6-2.3); Potassium 4.6 mmol/L (3.5-5.1); Total Bilirubin 0.7 mg/dL (0.2-1.3); Total Protein 5.6 g/dL (6.3-8.2)
[2016-12-17] MEDS ORDERED: SPIRONOLACTONE 25 MG TAB PO SCH (09:00)
[2016-12-17] MEDS: ASPIRIN 81 MG CHEW PO SCH (09:43)
[2016-12-17] MEDS: ATORVASTATIN 80 MG TAB PO SCH (09:43)
[2016-12-17] MEDS: ISOSORBIDE MONONITRATE ER 30 MG TAB.ER.24H PO SCH (09:49)
--- NOTE | 2016-12-17 12:00 | P.PN ---
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 Patient lost consciousness for a few seconds and he found himself on the floor he ended up the skinning his left knee and left elbow, and that time his daughter wanted to bring into the emergency department on Friday evening however the patient refused, patient did well after 48 hours until yesterday when he developed to have his another syncopal episode while standing up without any dizziness or lightheadedness at that time. Without any palpitation he came to the ER and he had some significant pain in the left rib cage, x-ray did not show any evidence of any fracture however the patient was admitted to hospital for possible cardiac arrhythmias. His troponin was slightly elevated however did not appear to have an acute coronary syndrome. 12/17: Heart rate is running 60-100. Orthostatics were positive. Patient apparently had some confusion during the night and difficulty with shortness of breath with cough and hemoptysis which is improved at this time. Echocardiogram was suboptimal with mild concentric left hypertrophy, mild aortic valve sclerosis, mild mitral regurgitation, mild tricuspid regurgitation. Triglycerides 61, cholesterol 133, LDH 78, HDL 43. Carotid ultrasound was negative. CAT scan of the chest ordered. Patient's daughter is meeting with social work for discharge planning for subacute rehab. Objective - Vital Signs Vital signs: Vital Signs Temp 99.1 F 12/17/16 03:00 Pulse 86 12/17/16 03:00 Resp 14 12/17/16 03:38 BP 139/73 12/17/16 03:00 Pulse Ox 93 L 12/17/16 03:00 Intake & Output 12/16/16 12/17/16 12/17/16 18:59 06:59 18:59 Intake Total 1755 375 240 Output Total 600 Balance 1755 -225 240 Weight 70.5 kg Intake: Intake, IV Titration 775 375 Amount Sodium Chloride 0.9% 1, 775 375 000 ml @ 75 mls/hr IV . [id number] [facility] Rx#:[id number] Oral 980 240 Output: Urine 250 Urine/Stool Mix 350 Other: Voiding Method Bedside Commode Urinal # Voids 2 # Bowel Movements 1 - Exam - Constitutional General appearance: disheveled, mild distress, thin - EENT Eyes: anicteric sclerae, EOMI, PERRLA, no ptosis, no scleral icterus, normal appearance ENT: hard of hearing, NA/AT, normal oropharynx, no thrush Ears: bilateral: normal - Neck Neck: no lymphadenopathy, normal ROM, no rigidity, no stridor, no thyromegaly Carotids: bilateral: upstroke delayed Thyroid: bilateral: normal size - Respiratory Respiratory: bilateral: diminished, negative: dullness, rales, rhonchi, wheezing , prolonged expiration, prolonged inspiration - Cardiovascular Rhythm: irregularly irregular Heart sounds: normal: S1, S2 Abnormal Heart Sounds: systolic murmur, no rub, no click - Gastrointestinal General gastrointestinal: normal bowel sounds, soft, no splenomegaly, no tenderness, no umbilical hernia, no ventral hernia - Genitourinary Male genitourinary: enlarged prostate - Integumentary Integumentary: normal, normal turgor - Neurologic Neurologic: CNII-XII intact - Labs CBC & Chem 7: 12/17/16 05:53 12/17/16 05:53 Labs: Abnormal Lab Results - Last 24 Hours (Table) 12/17/16 12/17/16 12/17/16 Range/Units 02:17 05:53 05:53 RBC 4.08 L 3.77 L (4.30-5.90) m/uL Hgb 12.4 L 11.6 L (13.0-17.5) gm/dL Hct 38.9 L 35.2 L (39.0-53.0) % Lymphocytes # 0.9 L 0.5 L (1.0-4.8) k/uL Chloride 109 H (98-107) mmol/L BUN 33 H (9-20) mg/dL Creatinine 1.70 H (0.66-1.25) mg/dL Total Protein 5.6 L (6.3-8.2) g/dL Albumin 2.8 L (3.5-5.0) g/dL Assessment and Plan Plan: 1. Syncope likely related to orthostatic changes. Patient does appear to have a sinus rhythm with first degree AV block, patient is not a candidate for AICD because of his age at this time we'll monitor the patient very closely, we will check echocardiogram as well as ultrasound of the carotid. Cardiology consult. 2. CAD post CABG with ischemic cardiomyopathy. Continue aspirin 81 mg once every day, Lipitor 80 mg orally once every day, Imdur 30 mg orally once every day, Zestril 5 mg orally once every day and Coreg 3.125 mg orally twice every day. 3. Hypertension and hypertensive cardiovascular disease. Continue with Coreg 3.125 mg orally twice every day, Zestril 5 mg orally once every day. 4. Hyperlipidemia. Continue Lipitor 80 mg orally once every day. 5. Chronic atrial flutter ablation. Continue Xarelto 15 mg orally once every day. 6. 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 7. Possible prostate cancer. Watchful waiting. 8. Acute kidney injury and top of chronic kidney disease stage III. He shouldn 't receive IV fluid resuscitation overnight and we'll Hep-Lock his IV. 9. DVT prophylaxis. Currently on Xarelto 15 mg orally once every day. 10. GI prophylaxis. Continue PPI. 11. 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 12. Macular degeneration. Stable at this time. 13. Debility. Physical therapy evaluation. 14. Patient is no code. discussed with the patient and his daughter at the bedside. 15. Admit to inpatient. Estimate a length of stay 2 midnights. Discharge plan: Subacute rehab Impression and plan of care have been directed as dictated by the signing physician. Venus Blair nurse practitioner acting as scribe for signing physician. Time with Patient: Greater than 30
[2016-12-17] MEDS: LISINOPRIL 5 MG TAB PO SCH (12:10)
--- NOTE | 2016-12-17 12:44 | CT ---
EXAMINATION TYPE: CT chest wo con DATE OF EXAM: 12/17/2016 11:28 AM COMPARISON: PET/CT April 22, 2015 HISTORY: Hemoptysis CT DLP: 502 mGycm. Automated Exposure Control for Dose Reduction was Utilized. TECHNIQUE: CT scan of the thorax is performed without IV contrast. FINDINGS: LUNGS: Mild underlying emphysematous change is felt present. There is new tiny left pleural effusion or fluid collection. There is new left hilar nodular consolidation near axial image 28. Bronchi remai n patent. There is dependent atelectatic change in the left lung base. There is additional patchy rig ht lower lobe atelectasis and/or scarring. Scattered subcentimeter nodularity is felt stable, for ref erence 4 mm nodule right mid lung on axial image 30 is not significantly changed. The 6 mm nodule rig ht midlung anteriorly on axial image 27 is not significantly changed. MEDIASTINUM: Lack of IV contrast is noted to limit evaluation for mediastinal and especially hilar ad enopathy. There remain prominent thoracic lymph nodes for reference borderline paratracheal and estrella carinal lymph nodes on axial image 20 are stable. There are several additional borderline right parat lizbet lymph nodes extending superiorly redemonstrated. No significant pericardial effusion is seen. Post CABG changes with mediastinal clips and sternal wires is redemonstrated. Mild cardiomegaly is n ow present. OTHER: Bilateral gynecomastia is redemonstrated. A 2.2 cm simple hepatic cyst right hepatic lobe on a xial image 59 is redemonstrated. A simple appearing 1.8 cm cyst posteriorly upper to mid pole level r ight kidney on axial image 64 is redemonstrated. Osseous structures are somewhat demineralized. Sligh t underlying scoliotic curvature is now present. There is multilevel spurring in the visualized thora cic spine redemonstrated. IMPRESSION: Persistent borderline thoracic adenopathy. Consider granulomatous disease or sarcoidosis. Stable small right lung nodules. New tiny left pleural effusion. New left hilar nodular consolidatio n favoring postinflammatory etiology. Consider repeat PET/CT follow-up.
--- NOTE | 2016-12-17 15:42 | P.PN ---
Subjective This is an 86-year-old gentleman with history of coronary artery disease and prior bypass surgery, paroxysmal atrial fibrillation, hypertension, hyperlipidemia, mild memory impairment, renal disease, history of squamous cell carcinoma with prior radiation, he presented to the hospital following 2 syncopal episodes. Most of the history was obtained from the daughter who is at the bedside. Patient apparently lives alone, he had an episode where he passed out suddenly on Friday, he did not mention any of this to his children, he again had an episode on Friday. According to the patient he is standing up when both episodes occurred, he denies any dizziness at the time, no lightheadedness, no chest discomfort, no warning prior to passing out at all. Patient was seen here in the hospital in 2013, an echo was done at that time which revealed an ejection fraction of less than 20%. Patient follows only with Dr. Og in the office. The pressure on arrival here 155/90 with a heart rate in the 70s to 80s, 95% on room air. EKG on arrival showed a normal sinus rhythm with first-degree AV block, right bundle branch block pattern and left anterior fascicular block. Occasional PACs. Patient had orthostatics obtained which were significantly positive. He was initiated on bilateral SEAN hose stockings. Orthosis are mildly improved today with hydration. Blood pressure 140/70 lying 120/70 sitting and 118/70 standing. Objective - Vital Signs Vital signs: Vital Signs Temp 98 F 12/17/16 12:00 Pulse 63 12/17/16 12:00 Resp 16 12/17/16 12:00 BP 140/78 12/17/16 14:40 Pulse Ox 97 12/17/16 12:00 Intake & Output 12/16/16 12/17/16 12/17/16 18:59 06:59 18:59 Intake Total 1755 375 600 Output Total 600 300 Balance 1755 -225 300 Weight 70.5 kg Intake: Intake, IV Titration 775 375 Amount Sodium Chloride 0.9% 1, 775 375 000 ml @ 75 mls/hr IV . [id number] [facility] Rx#:[id number] Oral 980 600 Output: Urine 250 300 Urine/Stool Mix 350 Other: Voiding Method Bedside Commode Bedside Commode Urinal Urinal # Voids 2 1 # Bowel Movements 1 - Exam PHYSICAL EXAMINATION: HEENT: Head is atraumatic, normocephalic. Pupils equal, round. Neck is supple. There is no elevated jugular venous pressure. HEART EXAMINATION: R S1 and S2 systolic murmur is heard. CHEST EXAMINATION: Lungs are clear to auscultation and precussion. No chest wall tenderness is noted on palpation or with deep breathing. ABDOMEN: Soft, nontender. Bowel sounds are heard. No organomegaly noted. EXTREMITIES: 2+ peripheral pulses with no evidence of peripheral edema and no calf tenderness noted. NEUROLOGIC patient is awake, alert and oriented -3. - Labs CBC & Chem 7: 12/17/16 05:53 12/17/16 05:53 Labs: Abnormal Lab Results - Last 24 Hours (Table) 12/17/16 12/17/16 12/17/16 Range/Units 02:17 05:53 05:53 RBC 4.08 L 3.77 L (4.30-5.90) m/uL Hgb 12.4 L 11.6 L (13.0-17.5) gm/dL Hct 38.9 L 35.2 L (39.0-53.0) % Lymphocytes # 0.9 L 0.5 L (1.0-4.8) k/uL Chloride 109 H (98-107) mmol/L BUN 33 H (9-20) mg/dL Creatinine 1.70 H (0.66-1.25) mg/dL Total Protein 5.6 L (6.3-8.2) g/dL Albumin 2.8 L (3.5-5.0) g/dL Assessment and Plan Plan: Assessment and plan # 1 syncope, nephrectomy positive orthostatic hypotension. #2 known history of coronary artery disease with prior bypass surgery #3 ischemic cardiomyopathy #4 hypertension #5 hyperlipidemia #6 mild memory impairment #7 history of squamous cell carcinoma on the forehead, with prior radiation. #8 acute on chronic renal disease #9 paroxysmal atrial fibrillation #10 abnormal troponins, not consistent with acute coronary syndrome. Plan We will continue with the bilateral SEAN hose stockings. Continue to monitor for any tachycardia or bradycardia arrhythmias. Once the patient is discharged home from the hospital we would recommend placement of an event monitor to continue to monitor whether the patient is having any significant pauses or arrhythmias. DNP note has been reviewed, I agree with a documented findings and plan of care. Patient was seen and examined.
[2016-12-17] MEDS: RIVAROXABAN 15 MG TAB PO SCH (20:08)
[2016-12-17 22:48] VITALS: RESP 18
[2016-12-18] MEDS: CARVEDILOL 3.125 MG TAB PO SCH (06:46)
[2016-12-18 07:29] LABS: CH 29.7; CHCM 31.5; HCT 37.1 % (39.0-53.0); HDW 2.41; HGB 11.9 gm/dL (13.0-17.5); MCH 30.3 pg (25.0-35.0); MCV 94.6 fL (80.0-100.0); RBC 3.92 m/uL (4.30-5.90); RDW 13.3 % (11.5-15.5); WBC 5.6 k/uL (3.8-10.6)
[2016-12-18 07:44] LABS: Calcium 8.7 mg/dL (8.4-10.2); Potassium 4.1 mmol/L (3.5-5.1)
[2016-12-18] MEDS: ATORVASTATIN 80 MG TAB PO SCH (09:38)
[2016-12-18] MEDS: ASPIRIN 81 MG CHEW PO SCH (09:38)
[2016-12-18] MEDS: ISOSORBIDE MONONITRATE ER 30 MG TAB.ER.24H PO SCH (09:38)
[2016-12-18 11:21] LABS: Glucose,Whole Blood 127 mg/dL (75-99)
[2016-12-18] MEDS: LISINOPRIL 5 MG TAB PO SCH (12:09)
--- NOTE | 2016-12-18 12:11 | P.DS ---
Providers Date of admission: 12/15/16 20:11 Expected date of discharge: 12/18/16 Attending physician: Rich Og Primary care [facility]: [facility] Course: This is an 86-year-old male one of Dr. Og with a previous medical history significant for CAD post CABG 3 back in 1997, with ischemic cardiopathy , chronic atrial fibrillation, hyperlipidemia, hypertension and hypertensive cardio vascular disease, memory impairment, possible prostate cancer, patient lives alone and he gets some help from his family members including his daughter , patient stated that on Friday he was standing in the kitchen is back to the [facility] and suddenly he passed out without any warning symptoms he was not dizzy or lightheaded at that time. Patient lost consciousness for a few seconds and he found himself on the floor he ended up the skinning his left knee and left elbow, and that time his daughter wanted to bring into the emergency department on Friday evening however the patient refused, patient did well after 48 hours until yesterday when he developed to have his another syncopal episode while standing up without any dizziness or lightheadedness at that time. Without any palpitation he came to the ER and he had some significant pain in the left rib cage, x-ray did not show any evidence of any fracture however the patient was admitted to hospital for possible cardiac arrhythmias. His troponin was slightly elevated however did not appear to have an acute coronary syndrome. 12/17: Heart rate is running 60-100. Orthostatics were positive. Patient apparently had some confusion during the night and difficulty with shortness of breath with cough and hemoptysis which is improved at this time. Echocardiogram was suboptimal with mild concentric left hypertrophy, mild aortic valve sclerosis, mild mitral regurgitation, mild tricuspid regurgitation. Triglycerides 61, cholesterol 133, LDH 78, HDL 43. Carotid ultrasound was negative. CAT scan of the chest ordered. Patient's daughter is meeting with social work for discharge planning for subacute rehab. 12/18: CT of the chest shows persistent borderline thoracic adenopathy. Consider granulomatosis disease or sarcoidosis. Stable small right lung nodules. New tiny left pleural effusion. New left hilar nodular consolidation favoring postinflammatory etiology. Consider repeat PET scan. Repeat BUN 34 and creatinine 1.54. KRISTEL, Sandor, rheumatoid factor all ordered and to be obtained prior to discharge to [facility] today in stable condition. [facility]. Discharge diagnoses: 1. Syncope due to orthostatic hypotension. 2. CAD post CABG with ischemic cardiomyopathy. 3. Hypertension and hypertensive cardiovascular disease. 4. Hyperlipidemia. 5. Chronic atrial flutter ablation. 6. 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 7. Possible prostate cancer. Watchful waiting. 8. Acute kidney injury and top of chronic kidney disease stage III. 9. 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 10. Macular degeneration. Stable at this time. Discharge plan: [facility] under the care of Dr. Rico. Impression and plan of care have been directed as dictated by the signing physician. Venus Blair nurse practitioner acting as scribe for signing physician. + Patient Condition at Discharge: Good Plan - Discharge Summary Discharge Medication List Aspirin EC [Ecotrin Low Dose] 81 mg PO DAILY #30 tablet. 02/08/14 [Rx] Carvedilol [Coreg] 3.125 mg PO AC-BID #90 tab 02/08/14 [Rx] Furosemide [Lasix] 40 mg PO DAILY #30 tab 02/08/14 [Rx] Isosorbide Mononitrate [Imdur] 30 mg PO DAILY #30 tab 02/08/14 [Rx] Lisinopril [Zestril] 5 mg PO DAILY #30 tab 02/08/14 [Rx] Rivaroxaban [Xarelto] 15 mg PO HS 12/15/16 [History] Atorvastatin [Lipitor] 80 mg PO DAILY tab 12/18/16 [Rx] Spironolactone [Aldactone] 12.5 mg PO DAILY #30 tab 12/18/16 [Rx] Follow up Appointment(s)/Referral(s): [facility] [Provider Group] - 1 Week (For event monitor) Rich Og MD [Primary Care Provider] - 1 Week (After discharge from [facility]) Discharge Disposition: TRANSFER TO SNF/ECF
[2016-12-18 12:21] VITALS: BP 96/53; PULSE 81; TEMP 96.9
[2016-12-19 07:25] LABS: ANA w/Reflex to Titer POSITIVE (NEGATIVE)
== END 2016-12-18 14:43 | DRG 312 ==
LOC: EC 17:06 → 6SEL 20:11
PROVIDERS: ADMIT Internal Medicine Geriatric Medicine; ATTEND Internal Medicine Geriatric Medicine
DX: I95.1 Orthostatic hypotension (principal); N17.9 Acute kidney failure, unspecified; I48.92 Unspecified atrial flutter; I13.0 Hypertensive heart and chronic kidney disease with heart failure and stage 1 through stage 4 chronic kidney disease, or unspecified chronic kidney disease; I45.2 Bifascicular block; I50.9 Heart failure, unspecified; F03.90 Unspecified dementia, unspecified severity, without behavioral disturbance, psychotic disturbance, mood disturbance, and anxiety; E78.5 Hyperlipidemia, unspecified; I08.3 Combined rheumatic disorders of mitral, aortic and tricuspid valves; H35.30 Unspecified macular degeneration; H91.90 Unspecified hearing loss, unspecified ear; I25.10 Atherosclerotic heart disease of native coronary artery without angina pectoris; I25.2 Old myocardial infarction; I25.5 Ischemic cardiomyopathy; I44.0 Atrioventricular block, first degree; I48.0 Paroxysmal atrial fibrillation; I48.2 Chronic atrial fibrillation; N18.3 Chronic kidney disease, stage 3 (moderate); M19.90 Unspecified osteoarthritis, unspecified site; C61 Malignant neoplasm of prostate; Z79.01 Long term (current) use of anticoagulants; Z79.82 Long term (current) use of aspirin; Z79.899 Other long term (current) drug therapy; Z91.041 Radiographic dye allergy status; Z85.828 Personal history of other malignant neoplasm of skin; Z95.1 Presence of aortocoronary bypass graft; Z82.49 Family history of ischemic heart disease and other diseases of the circulatory system
CPT/HCPCS: 36415; 70450; 71020; 71250; 72170; 80048; 80053; 80061; 81003; 82164; 82550; 82553; 83605; 83735; 83880; 84100; 84443; 84484; 85025; 85027; 85049; 85610; 85730; 86038; 86039; 86431; 93005; 93306; 93880; 94760; 96361; 96374; 99285

== ENCOUNTER 2017-01-21 03:58 | Emergency (ER) | payer MEDICARE, BC ==
[2017-01-21 04:04] VITALS: RESP 18
--- NOTE | 2017-01-21 04:19 | ED ---
URI HPI - General Chief Complaint: Upper Respiratory Infection Stated Complaint: Coughing up Blood Time Seen by Provider: 01/21/17 04:00 Source: EMS Mode of arrival: EMS Limitations: no limitations - History of Present Illness Initial Comments: This patient is an 86-year-old man who presents to be evaluated for hemoptysis. The patient states that he was sleeping today just before 2:30 this morning when he woke with a cough and found that he was coughing small amounts of blood. Patient is not able to further characterize the amount. Patient denies any associated symptoms. He had not been having fever or chills. He is not having any dyspnea or diaphoresis. There was no associated chest pain. Patient has not been having any upper respiratory symptoms and does not believe that this was related to any epistaxis, as he was not having blood from the nares. The patient does take Xarelto. Complaint: other (Hemoptysis) Onset/Timin -: hour(s) Consistency: intermittent Improves With: nothing Worsens With: nothing - Related Data Home Medications Medication Instructions Recorded Confirmed Rivaroxaban [Xarelto] 15 mg PO HS 12/15/16 12/15/16 Previous Rx's Medication Instructions Recorded Aspirin EC [Ecotrin Low Dose] 81 mg PO DAILY #30 tablet. 02/08/14 Carvedilol [Coreg] 3.125 mg PO AC-BID #90 tab 02/08/14 Furosemide [Lasix] 40 mg PO DAILY #30 tab 02/08/14 Isosorbide Mononitrate [Imdur] 30 mg PO DAILY #30 tab 02/08/14 Lisinopril [Zestril] 5 mg PO DAILY #30 tab 02/08/14 Atorvastatin [Lipitor] 80 mg PO DAILY tab 12/18/16 Spironolactone [Aldactone] 12.5 mg PO DAILY #30 tab 12/18/16 Allergies Allergy/AdvReac Type Severity Reaction Status Date / Time iodine Allergy Severe Anaphylaxis Verified 01/21/17 04:04 shellfish derived Allergy Severe Anaphylaxis Verified 01/21/17 04:04 Review of Systems ROS Statement: Those systems with pertinent positive or pertinent negative responses have been documented in the HPI. ROS Other: All systems not noted in ROS Statement are negative. Constitutional: Denies: fever, chills ENT: Denies: throat pain, epistaxis, congestion Respiratory: Reports: cough, hemoptysis. Denies: dyspnea, wheezes Cardiovascular: Denies: chest pain, palpitations, syncope Gastrointestinal: Denies: abdominal pain, vomiting, diarrhea Skin: Denies: rash Neurological: Denies: headache, weakness, numbness Hematological/Lymphatic: Reports: other (Xarelto). Denies: easy bleeding Past Medical History Past Medical History: Atrial Fibrillation, Coronary Artery Disease (CAD), Cancer , Heart Failure, Hearing Disorder / Deafness, Hyperlipidemia, Hypertension, Memory Impairment, Myocardial Infarction (AR), Osteoarthritis (OA), Prostate Disorder, Renal Disease, Syncope Additional Past Medical History / Comment(s): Squamous-cell carcinoma left side of forehead, radiation therapy 2 years ago. Last Myocardial Infarction Date:: 1981 History of Any Multi-Drug Resistant Organisms: None Reported Past Surgical History: Coronary Bypass/CABG Past Anesthesia/Blood Transfusion Reactions: No Reported Reaction Past Psychological History: No Psychological Hx Reported Smoking Status: Never smoker Past Alcohol Use History: None Reported Past Drug Use History: None Reported - Past Family History Mother Family Medical History: Myocardial Infarction (AR) (Mother at age of 87 from AR) Brother(s) Family Medical History: Cancer, Coronary Artery Disease (CAD) (Patient had 2 brothers one from diabetes competition the other one from CAD the third one had CAD but he passed from prostate cancer.), Diabetes Mellitus Sister(s) Family Medical History: No Reported History (Patient had 2 sisters one of them at age of 16 from suicide) Father Family Medical History: No Reported History (Father at age of 34 from suicide) General Exam Limitations: no limitations General appearance: alert, in no apparent distress Head exam: Present: normocephalic, other (Patient has a bandage to the left forehead that he states was related to previous abrasion) Eye exam: Present: normal appearance ENT exam: Present: normal oropharynx, mucous membranes moist, other (No blood from the nares) Neck exam: Present: normal inspection Respiratory exam: Present: normal lung sounds bilaterally. Absent: respiratory distress, wheezes, rales, rhonchi, stridor Cardiovascular Exam: Present: regular rate. Absent: systolic murmur, diastolic murmur, rubs, gallop GI/Abdominal exam: Present: soft. Absent: tenderness, guarding, rebound Extremities exam: Present: normal inspection, normal capillary refill. Absent: pedal edema, calf tenderness Neurological exam: Present: alert Skin exam: Present: warm, dry, intact, normal color. Absent: rash, cyanosis, petechiae, pallor Course Vital Signs 01/21/17 01/21/17 01/21/17 03:58 05:27 06:09 Temperature 98.2 F Pulse Rate 82 64 60 Respiratory 18 18 18 Rate Blood Pressure 108/58 108/59 102/57 O2 Sat by Pulse 99 95 95 Oximetry Medical Decision Making - Medical Decision Making When the patient's daughter arrived at the bedside she was able to fill in some additional details of the history. The patient reportedly has had a pneumonia 2 weeks ago and was treated. Tonight for about 90 minutes, the patient would have intermittent cough with dime to nickel sized spots of dark red blood. The patient's workup here is unremarkable, and he has not had any further hemoptysis. The patient is feeling well and I did discuss further care with the patient and his daughter. At this point the patient desires to go home. He does have a physician appointment today with the cardiology clinic regarding possibility of having a pacemaker. This appointment is in approximately hour 20 minutes, and this point patient looks stable to keep this appointment, returning should the symptoms recur. The patient is advised to hold the Xarelto 24 hours, and call his physician to have close follow-up. Other return parameters discussed. - Lab Data Result diagrams: 01/21/17 04:10 01/21/17 04:10 Lab Results 01/21/17 01/21/17 01/21/17 Range/Units 04:10 04:10 04:10 WBC 5.7 (3.8-10.6) k/uL RBC 4.07 L (4.30-5.90) m/uL Hgb 12.2 L (13.0-17.5) gm/dL Hct 38.1 L (39.0-53.0) % MCV 93.6 (80.0-100.0) fL MCH 30.1 (25.0-35.0) pg MCHC 32.1 (31.0-37.0) g/dL RDW 13.6 (11.5-15.5) % Plt Count 237 (150-450) k/uL Neutrophils % 75 % Lymphocytes % 9 % Monocytes % 9 % Eosinophils % 4 % Basophils % 1 % Neutrophils # 4.3 (1.3-7.7) k/uL Lymphocytes # 0.5 L (1.0-4.8) k/uL Monocytes # 0.5 (0-1.0) k/uL Eosinophils # 0.2 (0-0.7) k/uL Basophils # 0.0 (0-0.2) k/uL PT (9.0-12.0) sec INR (<1.1) APTT (22.0-30.0) sec Sodium 138 (137-145) mmol/L Potassium 4.1 (3.5-5.1) mmol/L Chloride 103 (98-107) mmol/L Carbon Dioxide 25 (22-30) mmol/L Anion Gap 10 mmol/L BUN 33 H (9-20) mg/dL Creatinine 1.48 H (0.66-1.25) mg/dL Est GFR (MDRD) Af Amer 54 (>60 ml/min/1.73 sqM) Est GFR (MDRD) Non-Af 45 (>60 ml/min/1.73 sqM) Glucose 110 H (74-99) mg/dL Plasma Lactic Acid Marcellus 1.2 (0.7-2.0) mmol/L Calcium 8.8 (8.4-10.2) mg/dL 01/21/17 Range/Units 04:10 WBC (3.8-10.6) k/uL RBC (4.30-5.90) m/uL Hgb (13.0-17.5) gm/dL Hct (39.0-53.0) % MCV (80.0-100.0) fL MCH (25.0-35.0) pg MCHC (31.0-37.0) g/dL RDW (11.5-15.5) % Plt Count (150-450) k/uL Neutrophils % % Lymphocytes % % Monocytes % % Eosinophils % % Basophils % % Neutrophils # (1.3-7.7) k/uL Lymphocytes # (1.0-4.8) k/uL Monocytes # (0-1.0) k/uL Eosinophils # (0-0.7) k/uL Basophils # (0-0.2) k/uL PT 13.3 H (9.0-12.0) sec INR 1.4 (<1.1) APTT 32.5 H (22.0-30.0) sec Sodium (137-145) mmol/L Potassium (3.5-5.1) mmol/L Chloride (98-107) mmol/L Carbon Dioxide (22-30) mmol/L Anion Gap mmol/L BUN (9-20) mg/dL Creatinine (0.66-1.25) mg/dL Est GFR (MDRD) Af Amer (>60 ml/min/1.73 sqM) Est GFR (MDRD) Non-Af (>60 ml/min/1.73 sqM) Glucose (74-99) mg/dL Plasma Lactic Acid Marcellus (0.7-2.0) mmol/L Calcium (8.4-10.2) mg/dL - EKG Data -: EKG Interpreted by [facility] EKG shows normal: sinus rhythm, axis (Left axis deviation), intervals (SC interval is normal. QRS duration is 172 ms, consistent with the right bundle branch block. QTC normal), QRS complexes (There is a right bundle-branch block pattern) Rate: normal (Rate 76 bpm) Disposition Clinical Impression: Hemoptysis Disposition: HOME SELF-CARE Condition: Good Instructions: Hemoptysis (ED) Referrals: Rich Og MD [Primary Care Provider] - 1-2 days
[2017-01-21 04:31] LABS: Basophils % (A) 1 %; CH 29.9; CHCM 32.1; Eosinophils # (A) 0.2 k/uL (0-0.7); Eosinophils % (A) 4 %; HCT 38.1 % (39.0-53.0); HDW 2.43; HGB 12.2 gm/dL (13.0-17.5); Luc # (Auto) 0.16; Luc % (Auto) 3; Lymphocytes # (A) 0.5 k/uL (1.0-4.8); Lymphocytes % (A) 9 %; MCH 30.1 pg (25.0-35.0); MCHC 32.1 g/dL (31.0-37.0); MCV 93.6 fL (80.0-100.0); Mean Platelet Volume 6.8; Monocytes # (A) 0.5 k/uL (0-1.0); Monocytes % (A) 9 %; Neutrophils # (A) 4.3 k/uL (1.3-7.7); Neutrophils % (A) 75 %; RBC 4.07 m/uL (4.30-5.90); RDW 13.6 % (11.5-15.5); WBC 5.7 k/uL (3.8-10.6); WBC (Perox) 5.95
[2017-01-21 04:43] LABS: Calcium 8.8 mg/dL (8.4-10.2); INR 1.4 (<1.1); Partial Thromboplastin Time 32.5 sec (22.0-30.0); Potassium 4.1 mmol/L (3.5-5.1); Prothrombin Time 13.3 sec (9.0-12.0)
--- NOTE | 2017-01-21 04:53 | XR ---
Exam: XR CXR 2 VIEWS History: Pain. Comparison: 12/15/16. Technique: Single frontal view. Findings: Median sternotomy wires. No focal consolidation or significant effusion. Question minimal prominence of pulmonary vasculature. Old left rib fracture. Impression: No consolidation.
[2017-01-21 06:55] VITALS: BP 113/60; PULSE 62; TEMP 97.8
== END 2017-01-21 06:55 | disposition home or self-care (01) ==
LOC: EC 03:58
DX: R04.2 Hemoptysis (principal); Z85.828 Personal history of other malignant neoplasm of skin; Z79.01 Long term (current) use of anticoagulants; Z88.8 Allergy status to other drugs, medicaments and biological substances; Z91.013 Allergy to seafood
CPT/HCPCS: 36415; 71020; 80048; 83605; 85025; 85610; 85730; 93005; 99284

== ENCOUNTER → 2017-01-29 | Outpatient (CLI) | payer MEDICARE, BC ==
--- NOTE | 2017-01-29 09:14 | CT ---
EXAMINATION TYPE: CT chest wo con DATE OF EXAM: 01/29/2017 COMPARISON: Previous study dated 12/17/2016 HISTORY: Cough, abn CXR CT DLP: 153 mGycm Automated exposure control for dose reduction was used. FINDINGS: There are mild, diffuse emphysematous changes throughout the lungs. There is no significant interstitial lung disease. There is no interlobular septal thickening. There is coarse scarring or f ibrosis in the left lower lobe. There are stable nodules within the right lung. The patient's left-sided pleural effusion has largely cleared. There continues to be borderline lymph adenopathy within the mediastinum. There is no pericardial fluid. The heart is not enlarged. There is coronary artery and other vascular calcifications. There is mild aneurysmal dilatation of the thoracic aorta. The ascending thoracic aorta is aneurysmal measuring 3.8 cm. At the level of the proximal arch, the aorta measures 3.8 cm. The proximal descend ing thoracic aorta measures 3.2 cm. At the level of the aortic hiatus, the aorta measures 2.6 cm. There is mild, stable, bilateral gynecomastia. There is a stable 2 cm hypodensity within the right lobe of the liver likely representing a cyst. There is hypertrophic spondylosis within the spine. IMPRESSION: 1. DIFFUSE EMPHYSEMATOUS CHANGE. 2. NO SIGNIFICANT INTERSTITIAL LUNG DISEASE. 3. STABLE RIGHT-SIDED PULMONARY NODULES. 4. RESOLUTION OF THE PATIENT'S LEFT-SIDED EFFUSION. 5. BORDERLINE MEDIASTINAL ADENOPATHY. THIS IS STABLE. 6. PROBABLE CYST WITHIN THE LIVER. THIS COULD BE CONFIRMED WITH ULTRASOUND. 7. DEGENERATIVE CHANGES WITHIN THE SPINE. 8. THORACIC AORTIC ANEURYSM.
== END | disposition home or self-care (01) ==
LOC: RADCTMAIN 08:11
PROVIDERS: ATTEND Internal Medicine Geriatric Medicine
DX: J43.9 Emphysema, unspecified (principal); R91.1 Solitary pulmonary nodule; R59.0 Localized enlarged lymph nodes
CPT/HCPCS: 71250

== ENCOUNTER 2017-04-14 16:38 | Inpatient (IN) | payer MEDICARE, BC ==
[2017-04-14] MEDS ORDERED: DEXTROSE 5% IN WATER 100 ML with AMIODARONE 150 MG IV ONE ×2 (17:07→20:56)
[2017-04-14] MEDS ORDERED: AMIODARONE 450 MG in DEXTROSE 5% IN WATER 250 ML IV ONE ×2 (17:07)
[2017-04-14 17:08] LABS: Basophils % (A) 0 %; CH 28.6; CHCM 31.5; Eosinophils # (A) 0.2 k/uL (0-0.7); Eosinophils % (A) 2 %; HDW 2.82; HGB 10.4 gm/dL (13.0-17.5); Hypochromasia Slight; Luc # (Auto) 0.14; Luc % (Auto) 2; Lymphocytes # (A) 0.6 k/uL (1.0-4.8); Lymphocytes % (A) 8 %; MCH 28.7 pg (25.0-35.0); MCHC 31.5 g/dL (31.0-37.0); MCV 91.2 fL (80.0-100.0); Mean Platelet Volume 7.2; Monocytes # (A) 0.6 k/uL (0-1.0); Monocytes % (A) 7 %; Neutrophils # (A) 6.7 k/uL (1.3-7.7); Neutrophils % (A) 81 %; RBC 3.62 m/uL (4.30-5.90); RDW 15.9 % (11.5-15.5); WBC 8.3 k/uL (3.8-10.6); WBC (Perox) 9.29
--- NOTE | 2017-04-14 17:08 | XR ---
EXAMINATION TYPE: XR chest 1V portable DATE OF EXAM: 04/14/2017 COMPARISON: 02/10/2017 HISTORY: Short of breath TECHNIQUE: Single frontal view of the chest is obtained. FINDINGS: There is no heart failure. There is blunting of left costophrenic angle. There is probably some infiltrate in the left lower lobe. There are chest leads. There are sternal wires. IMPRESSION: There is increased pleural reaction at the left lateral lung base compared to last exam. Left lower lobe pneumonia is suspected.
--- NOTE | 2017-04-14 17:13 | ED ---
General Adult HPI - General Chief complaint: Shortness of Breath Stated complaint: diff breathing Time Seen by Provider: 04/14/17 16:48 Source: patient, RN notes reviewed Mode of arrival: EMS Limitations: no limitations - History of Present Illness Initial comments: Patient is a pleasant 86-year-old male presenting to the emergency department complaining of chest discomfort. Onset was around noon. Discomfort was never severe. Discomfort is now essentially resolved. Patient does complain of some shortness of breath that has been waxing and waning. Dyspnea is mild to moderate at this time. Patient has had similar symptoms previously associated with heart attack. No nausea or diaphoresis. - Related Data Home Medications Medication Instructions Recorded Confirmed Rivaroxaban [Xarelto] 15 mg PO DAILY 12/15/16 04/14/17 Atorvastatin [Lipitor] 80 mg PO HS 04/14/17 04/14/17 Carvedilol [Coreg] 3.125 mg PO DAILY 04/14/17 04/14/17 Ipratropium-Albuterol Nebulize 3 ml INHALATION RT-QID 04/14/17 04/14/17 [Duoneb 0.5 mg-3 mg/3 ml Soln] Losartan [Cozaar] 25 mg PO DAILY 04/14/17 04/14/17 [facility] Wound Gel 1 applic TOPICAL DAILY 04/14/17 04/14/17 Spironolactone [Aldactone] 12.5 mg PO MOWEFR 04/14/17 04/14/17 Allergies Allergy/AdvReac Type Severity Reaction Status Date / Time iodine Allergy Severe Anaphylaxis Verified 04/14/17 17:12 shellfish derived Allergy Severe Anaphylaxis Verified 04/14/17 17:12 Review of Systems ROS Statement: Those systems with pertinent positive or pertinent negative responses have been documented in the HPI. ROS Other: All systems not noted in ROS Statement are negative. Constitutional: Denies: fever Eyes: Denies: eye pain ENT: Denies: ear pain Respiratory: Reports: dyspnea Cardiovascular: Reports: chest pain Endocrine: Denies: fatigue Gastrointestinal: Denies: abdominal pain Genitourinary: Denies: dysuria Musculoskeletal: Denies: back pain Skin: Denies: rash Neurological: Denies: weakness Past Medical History Past Medical History: Atrial Fibrillation, Coronary Artery Disease (CAD), Cancer , Heart Failure, Hearing Disorder / Deafness, Hyperlipidemia, Hypertension, Memory Impairment, Myocardial Infarction ([place]), Osteoarthritis (OA), Prostate Disorder, Renal Disease, Syncope Additional Past Medical History / Comment(s): Squamous-cell carcinoma left side of forehead, radiation therapy 2 years ago. Last Myocardial Infarction Date:: 1981 History of Any Multi-Drug Resistant Organisms: None Reported Past Surgical History: Coronary Bypass/CABG Past Anesthesia/Blood Transfusion Reactions: No Reported Reaction Past Psychological History: No Psychological Hx Reported Smoking Status: Never smoker Past Alcohol Use History: None Reported Past Drug Use History: None Reported - Past Family History Mother Family Medical History: Myocardial Infarction ([place]) (Mother at age of 87 from [place]) Brother(s) Family Medical History: Cancer, Coronary Artery Disease (CAD) (Patient had 2 brothers one from diabetes competition the other one from CAD the third one had CAD but he passed from prostate cancer.), Diabetes Mellitus Sister(s) Family Medical History: No Reported History (Patient had 2 sisters one of them at age of 16 from suicide) Father Family Medical History: No Reported History (Father at age of 34 from suicide) General Exam Limitations: no limitations General appearance: alert, in no apparent distress Head exam: Present: atraumatic Eye exam: Present: normal appearance, PERRL ENT exam: Present: normal oropharynx Neck exam: Present: normal inspection Respiratory exam: Present: decreased breath sounds (Left base) Cardiovascular Exam: Present: tachycardia GI/Abdominal exam: Present: soft. Absent: tenderness Extremities exam: Present: normal inspection Neurological exam: Present: alert Psychiatric exam: Present: normal affect, normal mood Skin exam: Present: normal color Course Vital Signs 04/14/17 04/14/17 04/14/17 16:41 16:52 17:21 Temperature Pulse Rate 156 H 157 H Respiratory 18 18 18 Rate Blood Pressure 97/52 94/50 O2 Sat by Pulse 99 97 Oximetry 04/14/17 04/14/17 04/14/17 17:45 18:34 18:59 Temperature Pulse Rate 141 H 145 H 145 H Respiratory 17 18 18 Rate Blood Pressure 94/50 101/68 96/61 O2 Sat by Pulse 98 99 100 Oximetry 04/14/17 04/14/17 04/14/17 19:15 19:38 19:45 Temperature 98.3 F Pulse Rate 145 H 144 H 144 H Respiratory 20 20 Rate Blood Pressure 101/58 104/71 O2 Sat by Pulse 98 99 Oximetry 04/14/17 04/14/17 04/14/17 20:07 20:13 21:11 Temperature Pulse Rate 137 H 145 H 141 H Respiratory 20 20 Rate Blood Pressure 105/73 93/66 O2 Sat by Pulse 99 97 Oximetry - Reevaluation(s) Reevaluation #1: 04/14/17 17:13 Patient has wide-complex tachycardia and does feel short of breath. Patient does have a history of atrial fibrillation. Previous EKG reviewed dated January [id number] also shows wide-complex. Cardiology has been paged. Pharmacist was contacted who stated the amount of iodine and amiodarone is minimal and gently cardiology still uses it despite ALLERGIES. 04/14/17 17:14 Patient reports iodine ALLERGY as vomiting with shellfish. 04/14/17 17:47 Dr. Garrett was called on his phone. He is agreeable with amiodarone and EKG was faxed to him. Heart rate 142. 04/14/17 18:19 Case was again discussed with Dr. Garrett who states. Digoxin will be preferred however to wait on BUN and creatinine and potassium levels. These are not back at this time. He is also okay with providing calcium channel jewels or beta jewels. 04/14/17 21:45 Patient again reexamined and resting comfortably in bed. No complaints of dyspnea. Heart rate has improved to 1:30. Case was also discussed with Dr. Og, who will admit his patient. He is agreeable with no heparin at this time. Patient will be given a single dose of Lasix. EKG Findings - EKG Comments: EKG Findings:: Wide-complex tachycardia 156. There does appear to be some irregularity. QRS 144. QT 354. QTC 570. Left axis. Right bundle branch block. No acute ST change. Medical Decision Making - Lab Data Result diagrams: 04/14/17 16:58 04/14/17 17:30 Lab Results 04/14/17 04/14/17 04/14/17 Range/Units 16:58 16:58 17:30 WBC 8.3 (3.8-10.6) k/uL RBC 3.62 L (4.30-5.90) m/uL Hgb 10.4 L (13.0-17.5) gm/dL Hct 33.0 L (39.0-53.0) % MCV 91.2 (80.0-100.0) fL MCH 28.7 (25.0-35.0) pg MCHC 31.5 (31.0-37.0) g/dL RDW 15.9 H (11.5-15.5) % Plt Count 383 (150-450) k/uL Neutrophils % 81 % Lymphocytes % 8 % Monocytes % 7 % Eosinophils % 2 % Basophils % 0 % Neutrophils # 6.7 (1.3-7.7) k/uL Lymphocytes # 0.6 L (1.0-4.8) k/uL Monocytes # 0.6 (0-1.0) k/uL Eosinophils # 0.2 (0-0.7) k/uL Basophils # 0.0 (0-0.2) k/uL Hypochromasia Slight PT 15.5 H (9.0-12.0) sec INR 1.6 H (<1.2) APTT 36.0 H (22.0-30.0) sec Sodium (137-145) mmol/L Potassium (3.5-5.1) mmol/L Chloride (98-107) mmol/L Carbon Dioxide (22-30) mmol/L Anion Gap mmol/L BUN (9-20) mg/dL Creatinine (0.66-1.25) mg/dL Est GFR (MDRD) Af Amer (>60 ml/min/1.73 sqM) Est GFR (MDRD) Non-Af (>60 ml/min/1.73 sqM) Glucose (74-99) mg/dL Calcium (8.4-10.2) mg/dL Magnesium (1.6-2.3) mg/dL Total Bilirubin (0.2-1.3) mg/dL AST (17-59) U/L ALT (21-72) U/L Alkaline Phosphatase (38-126) U/L Total Creatine Kinase (55-170) U/L CK-MB (CK-2) (0.0-2.4) ng/mL CK-MB (CK-2) Rel Index Troponin I (0.000-0.034) ng/mL NT-Pro-B Natriuret Pep 34063 pg/mL Total Protein (6.3-8.2) g/dL Albumin (3.5-5.0) g/dL TSH (0.465-4.680) mIU/L Free T4 (0.78-2.19) ng/dL Free T3 pg/mL (2.8-5.3) pg/ml 04/14/17 04/14/17 04/14/17 Range/Units 17:30 17:30 17:30 WBC (3.8-10.6) k/uL RBC (4.30-5.90) m/uL Hgb (13.0-17.5) gm/dL Hct (39.0-53.0) % MCV (80.0-100.0) fL MCH (25.0-35.0) pg MCHC (31.0-37.0) g/dL RDW (11.5-15.5) % Plt Count (150-450) k/uL Neutrophils % % Lymphocytes % % Monocytes % % Eosinophils % % Basophils % % Neutrophils # (1.3-7.7) k/uL Lymphocytes # (1.0-4.8) k/uL Monocytes # (0-1.0) k/uL Eosinophils # (0-0.7) k/uL Basophils # (0-0.2) k/uL Hypochromasia PT (9.0-12.0) sec INR (<1.2) APTT (22.0-30.0) sec Sodium 137 (137-145) mmol/L Potassium 4.8 (3.5-5.1) mmol/L Chloride 106 (98-107) mmol/L Carbon Dioxide 20 L (22-30) mmol/L Anion Gap 11 mmol/L BUN 36 H (9-20) mg/dL Creatinine 1.30 H (0.66-1.25) mg/dL Est GFR (MDRD) Af Amer >60 (>60 ml/min/1.73 sqM) Est GFR (MDRD) Non-Af 52 (>60 ml/min/1.73 sqM) Glucose 129 H (74-99) mg/dL Calcium 8.8 (8.4-10.2) mg/dL Magnesium 2.0 (1.6-2.3) mg/dL Total Bilirubin 0.7 (0.2-1.3) mg/dL AST 22 (17-59) U/L ALT 34 (21-72) U/L Alkaline Phosphatase 97 (38-126) U/L Total Creatine Kinase 47 L (55-170) U/L CK-MB (CK-2) 4.5 H* (0.0-2.4) ng/mL CK-MB (CK-2) Rel Index 9.6 Troponin I 0.531 H* (0.000-0.034) ng/mL NT-Pro-B Natriuret Pep pg/mL Total Protein 6.3 (6.3-8.2) g/dL Albumin 3.1 L (3.5-5.0) g/dL TSH 2.000 (0.465-4.680) mIU/L Free T4 1.47 (0.78-2.19) ng/dL Free T3 pg/mL 3.1 (2.8-5.3) pg/ml - Radiology Data Radiology results: image reviewed (Chest x-ray shows increased pleural reaction left base.) Critical Care Time Critical Care Time: Yes Total Critical Care Time: 49 Disposition Clinical Impression: Atrial fibrillation with RVR Disposition: ADMITTED IP TO THIS HOSP Condition: Serious Referrals: Rich Og MD [Primary Care Provider] - 1-2 days
[2017-04-14] MEDS: NITROGLYCERIN OINT 1 INCH/GM PACKET TOPICAL STA ×2 (17:33→17:42)
[2017-04-14] MEDS: ASPIRIN 81 MG CHEW PO STA ×2 (17:33→17:42)
[2017-04-14 17:59] LABS: INR 1.6 (<1.2); Prothrombin Time 15.5 sec (9.0-12.0)
[2017-04-14 18:16] LABS: ALT 34 U/L (21-72); AST 22 U/L (17-59); Alkaline Phosphatase 97 U/L (38-126); Anion Gap 11 mmol/L; Blood Urea Nitrogen 36 mg/dL (9-20); Calcium 8.8 mg/dL (8.4-10.2); Carbon Dioxide 20 mmol/L (22-30); Chloride 106 mmol/L (98-107); Glucose 129 mg/dL (74-99); Non-African American GFR(MDRD) 52 (>60 ml/min/1.73 sqM); Potassium 4.8 mmol/L (3.5-5.1); Sodium 137 mmol/L (137-145); Total Bilirubin 0.7 mg/dL (0.2-1.3); Total Protein 6.3 g/dL (6.3-8.2)
[2017-04-14 18:26] LABS: Creatine Kinase MB 4.5 ng/mL (0.0-2.4); Troponin I 0.531 ng/mL (0.000-0.034)
[2017-04-14] MEDS: DILTIAZEM 5 MG/ML 5 ML VIAL IVP STA ×3 (18:31→19:41)
[2017-04-14] MEDS ORDERED: DIGOXIN 250 MCG/ML 2 ML AMP IVP ONE (19:40)
--- NOTE | 2017-04-14 20:48 | P.CRDCN ---
History of Present Illness Consult date: 04/14/17 History of present illness: This is a 86-year-old gentleman history of previous bypass surgery, paroxysmal atrial fibrillation, hypertension and hyperlipidemia who was brought to the hospital with complaints of not feeling well and having some chest discomfort and burning sensation. He was found to be tachycardic with wide complex complexes consistent with possible atrial flutter with 2 to one conduction. Patient previous EKG showed similar right bundle-branch block pattern. Patient was given IV amiodarone and also Cardizem. Patient seemed to be feeling comfortable though his heart rate is still in the range of 140. Patient is also being given digoxin. Patient is given the option of having a cardioversion but patient doesn't want to have the procedure. He wants to be treated with medications only. Has history of cardiomyopathy and congestive heart failure. Recently some of the medications were taken off because of lightheadedness and history of syncopes. Review of Systems Not obtained Past Medical History Past Medical History: Atrial Fibrillation, Coronary Artery Disease (CAD), Cancer , Heart Failure, Hearing Disorder / Deafness, Hyperlipidemia, Hypertension, Memory Impairment, Myocardial Infarction ([place]), Osteoarthritis (OA), Prostate Disorder, Renal Disease, Syncope Additional Past Medical History / Comment(s): Squamous-cell carcinoma left side of forehead, radiation therapy 2 years ago. Last Myocardial Infarction Date:: 1981 History of Any Multi-Drug Resistant Organisms: None Reported Past Surgical History: Coronary Bypass/CABG Past Anesthesia/Blood Transfusion Reactions: No Reported Reaction Past Psychological History: No Psychological Hx Reported Smoking Status: Never smoker Past Alcohol Use History: None Reported Past Drug Use History: None Reported - Past Family History Mother Family Medical History: Myocardial Infarction ([place]) (Mother at age of 87 from [place]) Brother(s) Family Medical History: Cancer, Coronary Artery Disease (CAD) (Patient had 2 brothers one from diabetes competition the other one from CAD the third one had CAD but he passed from prostate cancer.), Diabetes Mellitus Sister(s) Family Medical History: No Reported History (Patient had 2 sisters one of them at age of 16 from suicide) Father Family Medical History: No Reported History (Father at age of 34 from suicide) Medications and Allergies Home Medications Medication Instructions Recorded Confirmed Type Rivaroxaban [Xarelto] 15 mg PO DAILY 12/15/16 04/14/17 History Atorvastatin [Lipitor] 80 mg PO HS 04/14/17 04/14/17 History Carvedilol [Coreg] 3.125 mg PO DAILY 04/14/17 04/14/17 History Ipratropium-Albuterol Nebulize 3 ml INHALATION RT-QID 04/14/17 04/14/17 History [Duoneb 0.5 mg-3 mg/3 ml Soln] Losartan [Cozaar] 25 mg PO DAILY 04/14/17 04/14/17 History [facility] Wound Gel 1 applic TOPICAL DAILY 04/14/17 04/14/17 History Spironolactone [Aldactone] 12.5 mg PO MOWEFR 04/14/17 04/14/17 History Allergies Allergy/AdvReac Type Severity Reaction Status Date / Time iodine Allergy Severe Anaphylaxis Verified 04/14/17 17:12 shellfish derived Allergy Severe Anaphylaxis Verified 04/14/17 17:12 Physical Exam Vitals: Vital Signs Temp Pulse Resp BP Pulse Ox 04/14/17 20:13 145 H 20 105/73 99 04/14/17 20:07 137 H 04/14/17 19:45 98.3 F 144 H 20 104/71 99 04/14/17 19:38 144 H 04/14/17 19:15 145 H 20 101/58 98 04/14/17 18:59 145 H 18 96/61 100 04/14/17 18:34 145 H 18 101/68 99 04/14/17 17:45 141 H 17 94/50 98 04/14/17 17:21 157 H 18 94/50 97 04/14/17 16:52 18 04/14/17 16:41 156 H 18 97/52 99 Intake and Output 04/14/17 04/14/17 04/14/17 06:59 14:59 22:59 Other: Weight 63.503 kg Patient Weight 04/15/17 06:59 Weight 63.503 kg GENERAL EXAM: Patient is alert and oriented and doesn't appear to be in any acute distress HEENT: Normocephalic. Normal reaction of pupils, equal size, normal range of extraocular motion. No erythema or exudates in the throat. NECK: No masses, no nuchal rigidity. CHEST: No chest wall deformity. LUNGS: Equal air entry with no crackles or wheeze. HEART: S1 and S2 normal with no audible mumurs or gallops. Regular rhythm, femorals equal on both sides.. ABDOMEN: No hepatosplenomegaly, normal bowel sounds, no guarding or rigidity. SKIN: No rashes CENTRAL NERVOUS SYSTEM: No focal deficits. EXTREMITIES: No cyanosis, clubbing or edema. Results 04/14/17 16:58 04/14/17 17:30 Cardiac Enzymes 04/14/17 04/14/17 Range/Units 17:30 17:30 AST 22 (17-59) U/L CK-MB (CK-2) 4.5 H* (0.0-2.4) ng/mL Troponin I 0.531 H* (0.000-0.034) ng/mL Coagulation 04/14/17 Range/Units 17:30 PT 15.5 H (9.0-12.0) sec APTT 36.0 H (22.0-30.0) sec CBC 04/14/17 Range/Units 16:58 WBC 8.3 (3.8-10.6) k/uL RBC 3.62 L (4.30-5.90) m/uL Hgb 10.4 L (13.0-17.5) gm/dL Hct 33.0 L (39.0-53.0) % Plt Count 383 (150-450) k/uL Comprehensive Metabolic Panel 04/14/17 Range/Units 17:30 Sodium 137 (137-145) mmol/L Potassium 4.8 (3.5-5.1) mmol/L Chloride 106 (98-107) mmol/L Carbon Dioxide 20 L (22-30) mmol/L BUN 36 H (9-20) mg/dL Creatinine 1.30 H (0.66-1.25) mg/dL Glucose 129 H (74-99) mg/dL Calcium 8.8 (8.4-10.2) mg/dL AST 22 (17-59) U/L ALT 34 (21-72) U/L Alkaline Phosphatase 97 (38-126) U/L Total Protein 6.3 (6.3-8.2) g/dL Albumin 3.1 L (3.5-5.0) g/dL Current Medications Generic Name Dose Route Start Last Admin Trade Name Freq PRN Reason Stop Dose Admin Amiodarone HCl 450 mg/ 259 mls @ 34.53 mls/hr 04/14/17 17:07 04/14/17 17:42 Dextrose/Water IV 04/15/17 00:37 1 mg/min .Q7H31M ONE 34.53 mls/hr Protocol Administration 1 MG/MIN Intake and Output 04/14/17 04/14/17 04/14/17 06:59 14:59 22:59 Other: Weight 63.503 kg Patient Weight 04/15/17 06:59 Weight 63.503 kg 04/14/17 16:58 04/14/17 17:30 EKG Interpretations (text) Wide-complex tachycardia most probably atrial flutter with 2to 1 conduction Assessment and Plan (1) Wide-complex tachycardia Status: Acute (2) Atrial flutter Status: Acute (3) Ischemic cardiomyopathy Status: Acute (4) Congestive heart failure Status: Acute Plan: Continue current treatment. Consider cardioversion, if patient becomes hemodynamically unstable. Continue the home medications. Further condition depend upon the clinical course.
[2017-04-14] MEDS ORDERED: NITROGLYCERIN SL TABS 0.4 MG TAB SUBLINGUAL PRN (21:47)
[2017-04-14] MEDS ORDERED: FUROSEMIDE 10 MG/ML 4 ML VIAL IV STA (21:50)
[2017-04-14 23:32] LABS: Creatine Kinase MB 3.8 ng/mL (0.0-2.4); Troponin I 0.71 ng/mL (0.000-0.034)
[2017-04-15] MEDS ORDERED: AMIODARONE 450 MG in DEXTROSE 5% IN WATER 250 ML IV SCH ×2
[2017-04-15 06:34] LABS: Cholesterol 79 mg/dL (<200); HDL Cholesterol 31 mg/dL (40-60)
[2017-04-15] MEDS: CARVEDILOL 3.125 MG TAB PO SCH (06:39)
[2017-04-15 07:00] LABS: Creatine Kinase MB 3.5 ng/mL (0.0-2.4); Troponin I 0.715 ng/mL (0.000-0.034)
[2017-04-15] MEDS: IPRATROPIUM-ALBUTEROL 3 ML NEB INHALATION SCH ×4 (07:39→19:31)
[2017-04-15] MEDS ORDERED: ASPIRIN 325 MG TAB PO SCH (09:00)
[2017-04-15] MEDS: RIVAROXABAN 15 MG TAB PO SCH (09:50)
[2017-04-15] MEDS: LOSARTAN 25 MG TAB PO SCH (09:50)
[2017-04-15 09:57] VITALS: RESP 18
--- NOTE | 2017-04-15 12:54 | P.CRDCN ---
History of Present Illness Consult reason: atrial flutter History of present illness: Electrophysiology consultation I was called by Dr. Garrett regarding this patient Patient interviewed and examined detailed discussion with the patient and his daughter 86-year-old male patient with shortness of breath that brought him to the hospital. He was found to be in a rapid tachycardia per ventricular with underlying bundle branch block at 156 beats a minute and many slow down, atrial flutter waves were evident. He is very short of breath and he told his daughter that he needed to go to the hospital. He states that he's had one such episode before. According to his previous history he's also had at least 2 episodes of syncope and had at least bifascicular block, right bundle branch block left anterior fascicular block Denies any chest discomfort. He is not short of breath and in sinus rhythm. He was treated with IV amiodarone and he converted to sinus rhythm and is now lying comfortably in bed. Past history of atrial fibrillation although I looked through all his EKGs and I do not see any evidence for atrial fibrillation but he does have underlying ischemic cardiomyopathy with a left ventricular ejection fraction between 30-35 % underlying coronary artery disease dyslipidemia hypertension and mild intermittent memory impairment the he has been experiencing syncope at least 2 such episodes Twelve-lead ECG this time was reviewed and it shows atrial flutter with RVR Medications include xarelto 15 mg daily atorvastatin carvedilol Cozaar spironolactone ALLERGIES to shellfish and iodine Review of systems: No fever chills or rigors, no cough, phlegm or expectoration , no nausea, vomiting or diarrhea, no hematuria, dysuria, no musculoskeletal complaints, no strokes or seizures, no skin lesions.. His main complaint is shortness of breath during the episode On examination he is lying flat in bed he was sleeping comfortably I woke him up and had a very detailed discussion with him regarding his options. No JVD no thyromegaly heart sounds S1 and S2 are normal, nomurmurs, breathsoundsarenormalnorhonchinocrackles abdomen is soft nontender him a extremities are warm no edema, no lower extremity swelling no ulceration no decubitus ulcer. He is an elderly gentleman quite frail but he was alert and oriented was able to answer all questions and comprehend fairly complex information regarding the options of treatment Impression Symptomatic atrial flutter with RVR with conversion while on IV amiodarone, recurrent Bifascicular block wide QRS right bundle branch block left anterior fascicular block Ischemic cardio myopathy left radical ejection fraction 30-35% underlying coronary artery disease coronary artery bypass grafting many years back History of syncope in the past but I don't see any bradycardia or AV block on any ECG are telemetry strips Low blood pressure that may have been the cause of syncope and fall in the past Suggest He is clearly quite symptomatic from atrial flutter and he is experienced this before and he will continue to experience these despite medications and antiarrhythmic therapy and the problems with medical treatment include further bradycardia and need for permanent pacing Atrial flutter ablation may be considered to reduce hospitalizations for recurrent atrial flutter, instead with the success rate of greater than 90-95% and a complication rate of less than 1% The other option that could be considered would be permanent pacing with AV junction modification. He does have by fascicular block with a wide QRS The patient and his daughter will think about this and get back to me Past Medical History Past Medical History: Atrial Fibrillation, Coronary Artery Disease (CAD), Cancer , Heart Failure, Hearing Disorder / Deafness, Hyperlipidemia, Hypertension, Memory Impairment, Myocardial Infarction ([place]), Osteoarthritis (OA), Prostate Disorder, Renal Disease, Syncope Additional Past Medical History / Comment(s): Squamous-cell carcinoma left side of forehead, radiation therapy 2 years ago. Last Myocardial Infarction Date:: 1997 History of Any Multi-Drug Resistant Organisms: None Reported Past Surgical History: Coronary Bypass/CABG Additional Past Surgical History / Comment(s): Triple-Vessel CABG Past Anesthesia/Blood Transfusion Reactions: No Reported Reaction Past Psychological History: No Psychological Hx Reported Smoking Status: Never smoker Past Alcohol Use History: None Reported Past Drug Use History: None Reported - Past Family History Mother Family Medical History: Myocardial Infarction ([place]) Brother(s) Family Medical History: Cancer, Coronary Artery Disease (CAD), Diabetes Mellitus Sister(s) Family Medical History: No Reported History Father Family Medical History: No Reported History Medications and Allergies Home Medications Medication Instructions Recorded Confirmed Type Rivaroxaban [Xarelto] 15 mg PO DAILY 12/15/16 04/14/17 History Atorvastatin [Lipitor] 80 mg PO HS 04/14/17 04/14/17 History Carvedilol [Coreg] 3.125 mg PO DAILY 04/14/17 04/14/17 History Ipratropium-Albuterol Nebulize 3 ml INHALATION RT-QID 04/14/17 04/14/17 History [Duoneb 0.5 mg-3 mg/3 ml Soln] Losartan [Cozaar] 25 mg PO DAILY 04/14/17 04/14/17 History [facility] Wound Gel 1 applic TOPICAL DAILY 04/14/17 04/14/17 History Spironolactone [Aldactone] 12.5 mg PO MOWEFR 04/14/17 04/14/17 History Allergies Allergy/AdvReac Type Severity Reaction Status Date / Time iodine Allergy Severe Anaphylaxis Verified 04/14/17 17:12 shellfish derived Allergy Severe Anaphylaxis Verified 04/14/17 17:12 Physical Exam Vitals: Vital Signs Temp Pulse Pulse Pulse Resp BP BP 04/15/17 12:22 97.5 F L 61 60 16 97/54 04/15/17 09:53 97.6 F 98 135 H 18 97/60 04/15/17 07:40 135 H 16 04/15/17 06:30 135 H 108/74 04/15/17 04:00 96.9 F L 95 18 111/66 04/15/17 00:00 134 H 18 04/14/17 23:04 97.3 F L 91 18 122/73 04/14/17 22:57 91 16 117/72 04/14/17 22:50 97 F L 134 H 18 102/71 04/14/17 22:12 132 H 18 111/74 04/14/17 21:11 141 H 20 93/66 04/14/17 20:13 145 H 20 105/73 04/14/17 20:07 137 H 04/14/17 19:45 98.3 F 144 H 20 104/71 04/14/17 19:38 144 H 04/14/17 19:15 145 H 20 101/58 04/14/17 18:59 145 H 18 96/61 04/14/17 18:34 145 H 18 101/68 04/14/17 17:45 141 H 17 94/50 04/14/17 17:21 157 H 18 94/50 04/14/17 16:52 18 04/14/17 16:41 156 H 18 97/52 Pulse Ox 04/15/17 12:22 97 04/15/17 09:53 93 L 04/15/17 07:40 96 04/15/17 06:30 04/15/17 04:00 99 04/15/17 00:00 04/14/17 23:04 100 04/14/17 22:57 97 04/14/17 22:50 100 04/14/17 22:12 99 04/14/17 21:11 97 04/14/17 20:13 99 04/14/17 20:07 04/14/17 19:45 99 04/14/17 19:38 04/14/17 19:15 98 04/14/17 18:59 100 04/14/17 18:34 99 04/14/17 17:45 98 04/14/17 17:21 97 04/14/17 16:52 04/14/17 16:41 99 Intake and Output 04/14/17 04/15/17 04/15/17 22:59 06:59 14:59 Intake Total 240 Output Total 950 Balance -950 240 Intake: Oral 240 Output: Urine 950 Other: # Voids 2 Weight 59.421 kg 64.5 kg Results 04/14/17 16:58 04/14/17 17:30 Cardiac Enzymes 04/14/17 04/14/17 04/14/17 Range/Units 17:30 17:30 22:38 AST 22 (17-59) U/L CK-MB (CK-2) 4.5 H* 3.8 H* (0.0-2.4) ng/mL Troponin I 0.531 H* 0.710 H* (0.000-0.034) ng/mL 04/15/17 Range/Units 05:28 AST (17-59) U/L CK-MB (CK-2) 3.5 H* (0.0-2.4) ng/mL Troponin I 0.715 H* (0.000-0.034) ng/mL Coagulation 04/14/17 Range/Units 17:30 PT 15.5 H (9.0-12.0) sec APTT 36.0 H (22.0-30.0) sec Lipids 04/15/17 Range/Units 05:28 Triglycerides 49 (<150) mg/dL Cholesterol 79 (<200) mg/dL HDL Cholesterol 31 L (40-60) mg/dL CBC 04/14/17 Range/Units 16:58 WBC 8.3 (3.8-10.6) k/uL RBC 3.62 L (4.30-5.90) m/uL Hgb 10.4 L (13.0-17.5) gm/dL Hct 33.0 L (39.0-53.0) % Plt Count 383 (150-450) k/uL Comprehensive Metabolic Panel 04/14/17 Range/Units 17:30 Sodium 137 (137-145) mmol/L Potassium 4.8 (3.5-5.1) mmol/L Chloride 106 (98-107) mmol/L Carbon Dioxide 20 L (22-30) mmol/L BUN 36 H (9-20) mg/dL Creatinine 1.30 H (0.66-1.25) mg/dL Glucose 129 H (74-99) mg/dL Calcium 8.8 (8.4-10.2) mg/dL AST 22 (17-59) U/L ALT 34 (21-72) U/L Alkaline Phosphatase 97 (38-126) U/L Total Protein 6.3 (6.3-8.2) g/dL Albumin 3.1 L (3.5-5.0) g/dL Current Medications Generic Name Dose Route Start Last Admin Trade Name Freq PRN Reason Stop Dose Admin Albuterol/Ipratropium 3 ml 04/15/17 08:00 04/15/17 11:30 Duoneb 0.5 Mg-3 Mg/3 Ml Soln INHALATION Not Given RT-QID [facility] Aspirin 81 mg 04/16/17 09:00 Aspirin PO DAILY [facility] Atorvastatin Calcium 80 mg 04/15/17 21:00 Lipitor PO HS [facility] Carvedilol 3.125 mg 04/15/17 07:30 04/15/17 06:39 Coreg PO 3.125 mg [id number] [facility] Administration Losartan Potassium 25 mg 04/15/17 09:00 04/15/17 09:50 Cozaar PO Not Given DAILY [facility] Nitroglycerin 0.4 mg 04/14/17 21:47 Nitrostat SUBLINGUAL Q5M PRN Chest Pain Rivaroxaban 15 mg 04/15/17 09:00 04/15/17 09:50 Xarelto PO 15 mg DAILY [facility]ANIELLA Administration Spironolactone 12.5 mg 04/16/17 09:00 Aldactone PO MoWeFr@0900 DANIELLA Intake and Output 04/14/17 04/15/17 04/15/17 22:59 06:59 14:59 Intake Total 240 Output Total 950 Balance -950 240 Intake: Oral 240 Output: Urine 950 Other: # Voids 2 Weight 59.421 kg 64.5 kg 04/14/17 16:58 04/14/17 17:30
--- NOTE | 2017-04-15 13:45 | P.HPIM ---
History of Present Illness H&P Date: 04/15/17 Chief Complaint: Kavitha kaminski with RVR, dyspnea and shortness of breath, chest pain, severe debili This is an 86-year-old male one of Dr. Og with a previous medical history significant for CAD post CABG 3 back in 1997, with ischemic cardiopathy , chronic atrial fibrillation, hyperlipidemia, hypertension and hypertensive cardio vascular disease, memory impairment, possible prostate cancer, patient lives alone and he gets some help from his family members including his daughter. patient stated that on Friday he was standing in the kitchen is back to the [facility] and suddenly he passed out without any warning symptoms he was not dizzy or lightheaded at that time. Patient lost consciousness for a few seconds and he found himself on the floor he ended up the skinning his left knee and left elbow, and that time his daughter wanted to bring into the emergency department on Friday evening however the patient refused, patient did well after 48 hours until yesterday when he developed to have his another syncopal episode while standing up without any dizziness or lightheadedness at that time. Without any palpitation he came to the ER and he had some significant pain in the left rib cage, x-ray did not show any evidence of any fracture however the patient was admitted to hospital for possible cardiac arrhythmias. His troponin was slightly elevated however did not appear to have an acute coronary syndrome. Patient Kavitha kaminski was quite bed resistant was started on Cardizem and then amiodarone and digoxin and an amiodarone drip he was seen cardiology in the emergency room continue current treatment his only on anticoagulation decided not to further anticoagulated this point. His troponin was mildly elevated consistent with acute kidney injury but most likely hypoperfusion with his rapid ventricular response with his Kavitha kaminski known to cardiology known to have coronary disease not able to do any invasive testing. Also patient known to have tachybradycardia syndrome was evaluated previously for pacemaker patient had refused it. Since his fall over 2 weeks ago patient has been having difficult time ambulating specially with the right hip pain with no sign of fracture. Review of Systems Constitutional: Reports anorexia, Reports chronic pain, Reports fatigue, Reports lethargy, Reports poor appetite, Reports weakness, Reports weight loss, Denies as per HPI, Denies chills, Denies chronic headaches, Denies daytime sleepiness, Denies fever, Denies malaise, Denies night sweats, Denies sweats, Denies weight gain Eyes: bilateral as per HPI Ears: bilateral: decreased hearing Ears, nose, mouth and throat: Reports headache, Reports nasal congestion, Reports nasal discharge, Reports sinus pain, Reports sinus pressure, Denies as per HPI, Denies ant. neck pain, Denies bleeding gums, Denies dental pain, Denies dysphagia, Denies epistaxis, Denies hoarseness, Denies mouth pain, Denies neck fullness/pressure, Denies neck lump, Denies nose pain, Denies odynophagia, Denies post-nasal drip, Denies swelling in mouth, Denies swelling in throat, Denies sore throat, Denies vertigo, Denies voice changes Cardiovascular: Reports chest pain, Reports claudication, Reports decreased exercise tolerance, Reports dyspnea on exertion, Reports edema, Reports high blood pressure, Reports irregular heart beat, Reports leg edema, Reports lightheadedness, Reports orthopnea, Reports palpitations, Reports paroxysmal nocturnal dyspnea, Reports rapid heart beat, Reports shortness of breath, Reports syncope, Denies as per HPI, Denies phlebitis Respiratory: Reports congestion, Reports cough, Reports dyspnea, Reports pain on inspiration, Reports wheezing, Denies as per HPI, Denies cough with sputum, Denies excessive sputum, Denies hemoptysis, Denies home oxygen, Denies pain, Denies pleurisy, Denies respiratory infections, Denies sleep apnea, Denies snoring Gastrointestinal: Reports abdominal pain, Reports belching, Reports bloating, Reports dyspepsia, Reports indigestion, Reports nausea, Denies as per HPI, Denies BRBPR, Denies change in bowel habits, Denies coffee ground emesis, Denies constipation, Denies diarrhea, Denies early satiety, Denies excessive gas , Denies heartburn, Denies hematemesis, Denies hematochezia, Denies jaundice, Denies lactose intolerance, Denies loss of appetite, Denies melena, Denies vomiting Genitourinary: Reports flank pain, Reports genital sores, Reports incontinence, Reports urinary frequency, Denies as per HPI, Denies decreased libido, Denies difficulties fathering child, Denies discharge, Denies dysuria, Denies erectile dysfunction, Denies genital pain, Denies hematuria, Denies impotence, Denies kidney stones, Denies nocturia, Denies polyuria, Denies testicular lump, Denies testicular pain, Denies urinary hesitancy, Denies urinary retention Musculoskeletal: Reports loss of height, Reports low back pain, Reports myalgias , Reports neck pain, Denies as per HPI, Denies arm numbness/tingling, Denies atrophy, Denies fractures, Denies frequent falls, Denies gait dysfunction, Denies hot joints, Denies leg numbness/tingling, Denies limitation of motion, Denies morning stiffness, Denies muscle cramps, Denies muscle weakness, Denies neck stiffness, Denies prior amputations, Denies redness of joints, Denies shooting arm pain, Denies shooting leg pain Musculoskeletal: bilateral: ankle pain Integumentary: Reports pruritus, Reports rash, Denies as per HPI, Denies acne, Denies boils, Denies brittle nails, Denies change in hair/nails, Denies color changes, Denies darkening of skin, Denies depigmentation, Denies dryness, Denies foot/leg ulcers, Denies growths, Denies hirsutism, Denies lesions, Denies onychomycosis, Denies sores, Denies striae, Denies unusual bruising, Denies wounds Neurological: Reports numbness, Reports paresthesias, Reports syncope, Reports tingling, Reports vertigo, Reports weakness, Denies as per HPI, Denies aphasia, Denies ataxia, Denies balance difficulties, Denies burning pain, Denies change in mentation, Denies change in smell/taste, Denies change in speech, Denies confusion, Denies convulsions, Denies double vision, Denies gait dysfunction, Denies head injury, Denies headaches, Denies hearing difficulties, Denies lack of coordination, Denies loss of vision, Denies memory loss, Denies migraines, Denies motor disturbance, Denies paralysis, Denies seizures, Denies sensory deficit, Denies spasticity, Denies tic, Denies transient paralysis, Denies tremors, Denies visual changes Psychiatric: Reports anhedonia, Reports change in appetite, Reports disorientation, Reports sadness/tearfulness, Reports sleep disturbances, Denies as per HPI, Denies anxiety, Denies anxiety attacks, Denies change in libido, Denies change in sleep habits, Denies confusion, Denies depression, Denies difficulty concentrating, Denies hallucinations, Denies hopelessness, Denies hypersomnia, Denies insomnia, Denies irritability, Denies memory loss, Denies mood swings, Denies paranoia, Denies suicidal ideation Endocrine: Reports fatigue, Reports heat intolerance, Reports nocturia, Reports polydipsia, Reports polyphagia, Reports polyuria, Denies as per HPI, Denies cold intolerance, Denies deepening of the voice, Denies excessive sweating, Denies excessive thirst, Denies flushing, Denies high blood sugars, Denies increase in ring/shoe/hat size, Denies low blood sugars, Denies palpitations, Denies proptosis, Denies recent glucocorticoid use, Denies thyroid mass, Denies weight change Hematologic/Lymphatic: Reports easy bruising, Denies as per HPI, Denies easy bleeding, Denies lymphadenopathy, Denies lymphedema, Denies thrombophilia Allergic/Immunologic: Reports allergic rhinitis, Denies as per HPI, Denies anaphylaxis, Denies angioedema, Denies gluten intolerance, Denies persistent infections, Denies seasonal allergies, Denies urticaria, Denies wheezing Past Medical History Past Medical History: Atrial Fibrillation, Coronary Artery Disease (CAD), Cancer , Heart Failure, Hearing Disorder / Deafness, Hyperlipidemia, Hypertension, Memory Impairment, Myocardial Infarction ([place]), Osteoarthritis (OA), Prostate Disorder, Renal Disease, Syncope Additional Past Medical History / Comment(s): Squamous-cell carcinoma left side of forehead, radiation therapy 2 years ago. Last Myocardial Infarction Date:: 1997 History of Any Multi-Drug Resistant Organisms: None Reported Past Surgical History: Coronary Bypass/CABG Additional Past Surgical History / Comment(s): Triple-Vessel CABG Past Anesthesia/Blood Transfusion Reactions: No Reported Reaction Past Psychological History: No Psychological Hx Reported Smoking Status: Never smoker Past Alcohol Use History: None Reported Past Drug Use History: None Reported - Past Family History Mother Family Medical History: Myocardial Infarction ([place]) Brother(s) Family Medical History: Cancer, Coronary Artery Disease (CAD), Diabetes Mellitus Sister(s) Family Medical History: No Reported History Father Family Medical History: No Reported History Medications and Allergies Home Medications Medication Instructions Recorded Confirmed Type Rivaroxaban [Xarelto] 15 mg PO DAILY 12/15/16 04/14/17 History Atorvastatin [Lipitor] 80 mg PO HS 04/14/17 04/14/17 History Carvedilol [Coreg] 3.125 mg PO DAILY 04/14/17 04/14/17 History Ipratropium-Albuterol Nebulize 3 ml INHALATION RT-QID 04/14/17 04/14/17 History [Duoneb 0.5 mg-3 mg/3 ml Soln] Losartan [Cozaar] 25 mg PO DAILY 04/14/17 04/14/17 History [facility] Wound Gel 1 applic TOPICAL DAILY 04/14/17 04/14/17 History Spironolactone [Aldactone] 12.5 mg PO MOWEFR 04/14/17 04/14/17 History Allergies Allergy/AdvReac Type Severity Reaction Status Date / Time iodine Allergy Severe Anaphylaxis Verified 04/14/17 17:12 shellfish derived Allergy Severe Anaphylaxis Verified 04/14/17 17:12 Physical Exam Vitals: Vital Signs Temp Pulse Pulse Pulse Resp BP BP 04/15/17 09:53 97.6 F 98 135 H 18 97/60 04/15/17 07:40 135 H 16 04/15/17 06:30 135 H 108/74 04/15/17 04:00 96.9 F L 95 18 111/66 04/15/17 00:00 134 H 18 04/14/17 23:04 97.3 F L 91 18 122/73 04/14/17 22:57 91 16 117/72 04/14/17 22:50 97 F L 134 H 18 102/71 04/14/17 22:12 132 H 18 111/74 04/14/17 21:11 141 H 20 93/66 04/14/17 20:13 145 H 20 105/73 04/14/17 20:07 137 H 04/14/17 19:45 98.3 F 144 H 20 104/71 04/14/17 19:38 144 H 04/14/17 19:15 145 H 20 101/58 04/14/17 18:59 145 H 18 96/61 04/14/17 18:34 145 H 18 101/68 04/14/17 17:45 141 H 17 94/50 04/14/17 17:21 157 H 18 94/50 04/14/17 16:52 18 04/14/17 16:41 156 H 18 97/52 Pulse Ox 04/15/17 09:53 93 L 04/15/17 07:40 96 04/15/17 06:30 04/15/17 04:00 99 04/15/17 00:00 04/14/17 23:04 100 04/14/17 22:57 97 04/14/17 22:50 100 04/14/17 22:12 99 04/14/17 21:11 97 04/14/17 20:13 99 04/14/17 20:07 04/14/17 19:45 99 04/14/17 19:38 04/14/17 19:15 98 04/14/17 18:59 100 04/14/17 18:34 99 04/14/17 17:45 98 04/14/17 17:21 97 04/14/17 16:52 04/14/17 16:41 99 Intake and Output 04/14/17 04/15/17 04/15/17 22:59 06:59 14:59 Intake Total 240 Output Total 950 Balance -950 240 Intake: Oral 240 Output: Urine 950 Other: # Voids 2 Weight 59.421 kg 64.5 kg - Constitutional General appearance: cooperative, disheveled, no acute distress, thin - EENT Spot on the left side of his for had from previous surgery with skin cancer removed still have quite but ulcerated area Eyes: no abnormal pupil, no anicteric sclerae, no disc margins sharp, no edentulous, no EOMI, no PERRLA, no fundus normal, no photophobia, no dentition normal, no poor dentition, no ptosis, no scleral icterus, normal appearance ENT: no hard of hearing, no hearing grossly normal, no NA/AT, normal oropharynx , no other, no pharyngeal erythema, no thrush, no tonsillar exudates, no tonsillar swelling Ears: bilateral: normal - Neck Neck: no lymphadenopathy, normal ROM, no other, no rigidity, no stridor, no thyromegaly Carotids: bilateral: upstroke normal, upstroke delayed Thyroid: bilateral: normal size - Respiratory Respiratory: bilateral: CTA, diminished, dullness, rales - Cardiovascular Rhythm: irregularly irregular Heart sounds: normal: S1, S2 Abnormal Heart Sounds: systolic murmur, S3 Gallop - Gastrointestinal General gastrointestinal: no absent bowel sounds, decreased bowel sounds, distended, no hepatomegaly, no hyperactive bowel sounds, no normal bowel sounds , organomegaly, no rigid, no scaphoid, soft, no splenomegaly, tenderness, no umbilical hernia, no ventral hernia - Integumentary Integumentary: no calor, no cellulitis, no cyanotic, no decreased turgor, no flushed, no jaundiced, normal, no normal turgor, pale, rash, no ulcer - Neurologic Neurologic: CNII-XII intact - Musculoskeletal Musculoskeletal: no gait normal, generalized weakness, no strength equal bilaterally, no right sided weakness, left sided weakness - Psychiatric Psychiatric: A&O x's 3 Results CBC & Chem 7: 04/14/17 16:58 04/14/17 17:30 Labs: Abnormal Lab Results - Last 24 Hours (Table) 04/14/17 04/14/17 04/14/17 Range/Units 16:58 17:30 17:30 RBC 3.62 L (4.30-5.90) m/uL Hgb 10.4 L (13.0-17.5) gm/dL Hct 33.0 L (39.0-53.0) % RDW 15.9 H (11.5-15.5) % Lymphocytes # 0.6 L (1.0-4.8) k/uL PT 15.5 H (9.0-12.0) sec INR 1.6 H (<1.2) APTT 36.0 H (22.0-30.0) sec Carbon Dioxide 20 L (22-30) mmol/L BUN 36 H (9-20) mg/dL Creatinine 1.30 H (0.66-1.25) mg/dL Glucose 129 H (74-99) mg/dL Total Creatine Kinase (55-170) U/L CK-MB (CK-2) (0.0-2.4) ng/mL Troponin I (0.000-0.034) ng/mL Albumin 3.1 L (3.5-5.0) g/dL HDL Cholesterol (40-60) mg/dL 04/14/17 04/14/17 04/15/17 Range/Units 17:30 22:38 05:28 RBC (4.30-5.90) m/uL Hgb (13.0-17.5) gm/dL Hct (39.0-53.0) % RDW (11.5-15.5) % Lymphocytes # (1.0-4.8) k/uL PT (9.0-12.0) sec INR (<1.2) APTT (22.0-30.0) sec Carbon Dioxide (22-30) mmol/L BUN (9-20) mg/dL Creatinine (0.66-1.25) mg/dL Glucose (74-99) mg/dL Total Creatine Kinase 47 L 45 L 39 L (55-170) U/L CK-MB (CK-2) 4.5 H* 3.8 H* 3.5 H* (0.0-2.4) ng/mL Troponin I 0.531 H* 0.710 H* 0.715 H* (0.000-0.034) ng/mL Albumin (3.5-5.0) g/dL HDL Cholesterol (40-60) mg/dL 04/15/17 Range/Units 05:28 RBC (4.30-5.90) m/uL Hgb (13.0-17.5) gm/dL Hct (39.0-53.0) % RDW (11.5-15.5) % Lymphocytes # (1.0-4.8) k/uL PT (9.0-12.0) sec INR (<1.2) APTT (22.0-30.0) sec Carbon Dioxide (22-30) mmol/L BUN (9-20) mg/dL Creatinine (0.66-1.25) mg/dL Glucose (74-99) mg/dL Total Creatine Kinase (55-170) U/L CK-MB (CK-2) (0.0-2.4) ng/mL Troponin I (0.000-0.034) ng/mL Albumin (3.5-5.0) g/dL HDL Cholesterol 31 L (40-60) mg/dL Thrombosis Risk Factor Assmnt - DVT/VTE Prophylaxis DVT/VTE Prophylaxis: Mechanical Prophylaxis ordered - Choose All That Apply Any of the Below Risk Factors Present?: Yes Each Factor Represents 1 point: Heart failure (<1month), Medical pt on bed rest Each Risk Factor Represents 3 Points: Age 75 years or older Thrombosis Risk Factor Assessment Total Risk Factor Score: 5 Thrombosis Risk Factor Assessment Level: High Risk Assessment and Plan Plan: 1 non-ST [place]: Most likely ischemic cardiac disease with elevated troponin with consistent chest pain and tachycardia patient will be hospitalized continue nitro consult cardiology. As for testing with patient's current condition performance status very low not been able to go for any invasive testing echo cardiogram will be done and keep watching patient on heart monitor. 2 A. fib with RVR: Pulse rate remained fast patient is on amiodarone drip currently he is on anticoagulated been on Xarelto no need for heparin drip currently patient had seen Dr. Shelley previously for his A. fib and arrhythmia which should be seen him in the hospital this time. 3 recurrent angina: Most likely caused by hypoperfusion from the A. fib with RVR. Treat underlying disease. 4 hypertension: Continue losartan Coreg and Aldactone. 5 CHF: Chronic systolic has been on Cozaar Coreg Aldactone and if needed smaller dose of furosemide. 6 hyperlipidemia: Has been on atorvastatin 80 mg daily. 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 8 advance skin cancer: Has been seen in dermatology multiple surgery and procedure done still have an area of the left forehead has been recovering since his last surgery. 9 right hip pain post fall: No sign of fracture so far will proceed with PTOT gradually and if needed repeat another x-ray or CAT scan. 10 GI prophylaxis: Patient will be on Pepcid 20 mg daily. 11 DVT prophylaxis: Patient still on Xarelto. Next 12 acute kidney injury: Continue mild hydration and watch his BUN/creatinine daily. 13 mild anemia: Still on iron supplement continue GI prophylaxis patient will have CBC daily. CODE STATUS: DO NOT RESUSCITATE, try to address with the family palliative care and possible hospice. Expectation from this admission: Patient be in the hospital for more than 2 nights.
[2017-04-15 14:48] VITALS: BMI 20.4
--- NOTE | 2017-04-15 16:53 | XR ---
"EXAMINATION TYPE: XR Hip RT and AP Pelvis DATE OF EXAM: 04/15/2017 COMPARISON: NONE HISTORY: Right hip pain following fall TECHNIQUE: A single AP view of the pelvis is obtained. Two views of the right hip are obtained. FINDINGS: There is no acute fracture/dislocation evident in the pelvis. The hip and sacroiliac join ts appear symmetric and unremarkable. The overlying soft tissue appears unremarkable. Abnormal lucency present in the acetabulum suggest bone erosion on the right. Two views of right hip show no acute fracture or dislocation. No focal lytic or sclerotic lesion see n in the proximal right femur. The overlying soft tissue is unremarkable. Bone mineralization is mi ldly reduced. Degenerative disc changes are present in the visualized spine. There are vascular calci fications within the pelvis. Surgical clip in the proximal left thigh soft tissues. IMPRESSION: There is an abnormal lucency in the acetabulum suspicious for metastatic lesion. Recommen d pelvis CT or MRI. There is no acute fracture or dislocation in the pelvis or right hip. A Yellow message has been communicated to Rich Og MD via the [facility] | Critical Result sy stem on 04/15/2017 4:50 PM, Message ID [id number]."
--- NOTE | 2017-04-15 19:09 | ECHOF ---
Referral Reason:Arrhythmia MEASUREMENTS -------- HEIGHT: 152.4 cm WEIGHT: 59.4 kg BP: 108/74 RVIDd: 3.5 cm (< 3.3) IVSd: 0.9 cm (0.6 - 1.1) LVIDd: 5.5 cm (3.9 - 5.3) LVPWd: 0.8 cm (0.6 - 1.1) IVSs: 1.0 cm LVIDs: 5.0 cm LVPWs: 0.9 cm LA Diam: 4.1 cm (2.7 - 3.8) Ao Diam: 4.6 cm (2.0 - 3.7) AV Cusp: 2.2 cm (1.5 - 2.6) LA Diam: 3.2 cm (2.7 - 3.8) MV EXCURSION: 15.618 mm (> 18.000) MV EF SLOPE: 107 mm/s (70 - 150) EPSS: 1.6 cm RAP: 5.00 mmHg RVSP: 23.69 mmHg FINDINGS -------- Atrial fibrillation. This was a techncally difficult study with suboptimal views, , Definity utilized for enhancement of images. Left ventricular wall thickness is normal. There is severe global hypokinesis of LV . Overall left ventricular systolic function is severely impaired with, an EF < 20%. The right ventricle is normal in size. The left atrium is mildly dilated. The right atrial size is normal. 1.5MG OF DEFINITY UTLIZED: 2 OR MORE WALL SEGMENTS NOT VISUALIZED. There is mild aortic valve sclerosis. There is no evidence of aortic regurgitation. Mild mitral annular calcification present. Mild mitral regurgitation is present. Mild tricuspid regurgitation present. There is no evidence of pulmonary hypertension. The right ventricular systolic pressure, as measured by Doppler, is 23.69mmHg. There is no pulmonic regurgitation present. The aortic root size is normal. There is no pericardial effusion. CONCLUSIONS -------- 1. This was a techncally difficult study with suboptimal views, , Definity utilized for enhancement of images. 2. There is no evidence of pulmonary hypertension. 3. The right ventricular systolic pressure, as measured by Doppler, is 23.69mmHg. 4. Left ventricular wall thickness is normal. 5. There is severe global hypokinesis of LV . 6. Overall left ventricular systolic function is severely impaired with, an EF < 20%. 7. The left atrium is mildly dilated. 8. 1.5MG OF DEFINITY UTLIZED: 2 OR MORE WALL SEGMENTS NOT VISUALIZED. 9. There is mild aortic valve sclerosis. 10. Mild mitral annular calcification present. 11. Mild tricuspid regurgitation present. MOLDER SETTER: Vera Ambriz RDCS
[2017-04-15] MEDS ORDERED: ATORVASTATIN 80 MG TAB PO SCH (21:00)
[2017-04-16] MEDS: AMIODARONE 200 MG TAB PO SCH ×2 (03:48→03:49)
[2017-04-16 05:14] VITALS: TEMP 97.8
[2017-04-16 06:13] LABS: Basophils % (A) 0 %; CH 28.9; CHCM 31.4; Eosinophils # (A) 0.1 k/uL (0-0.7); Eosinophils % (A) 1 %; HCT 31.3 % (39.0-53.0); HDW 2.72; HGB 10.2 gm/dL (13.0-17.5); Hypochromasia Slight; Luc # (Auto) 0.17; Luc % (Auto) 2; Lymphocytes # (A) 0.5 k/uL (1.0-4.8); Lymphocytes % (A) 6 %; MCHC 32.4 g/dL (31.0-37.0); MCV 92.4 fL (80.0-100.0); Mean Platelet Volume 7.1; Monocytes # (A) 0.6 k/uL (0-1.0); Monocytes % (A) 8 %; Neutrophils % (A) 83 %; RBC 3.39 m/uL (4.30-5.90); RDW 15.9 % (11.5-15.5); WBC 8.4 k/uL (3.8-10.6); WBC (Perox) 8.63
[2017-04-16] MEDS: CARVEDILOL 3.125 MG TAB PO SCH (06:23)
[2017-04-16 07:32] LABS: Potassium 4.4 mmol/L (3.5-5.1); Total Bilirubin 1.1 mg/dL (0.2-1.3); Total Protein 6.2 g/dL (6.3-8.2)
[2017-04-16] MEDS ORDERED: ASPIRIN 81 MG CHEW PO SCH (09:00)
[2017-04-16] MEDS ORDERED: SPIRONOLACTONE 25 MG TAB PO SCH (09:00)
[2017-04-16] MEDS ORDERED: FAMOTIDINE 20 MG TAB PO SCH (09:00)
[2017-04-16] MEDS: IPRATROPIUM-ALBUTEROL 3 ML NEB INHALATION SCH ×2 (09:00→13:16)
[2017-04-16] MEDS: RIVAROXABAN 15 MG TAB PO SCH (09:07)
[2017-04-16] MEDS: LOSARTAN 25 MG TAB PO SCH (09:07)
[2017-04-16 09:18] VITALS: BP 95/60; PULSE 138
--- NOTE | 2017-04-16 13:21 | P.DS ---
Providers Date of admission: 04/14/17 21:47 Expected date of discharge: 04/16/17 Attending physician: Rich Og Consults: 04/14/17 21:47 Consult Physician Urgent Consulting Provider: Henny Garrett Consult Reason/Comments: a flutter Do you want consulting provider notified?: Already Contacted Primary care physician: [facility] Course: This is an 86-year-old male one of Dr. Og with a previous medical history significant for CAD post CABG 3 back in 1997, with ischemic cardiopathy , chronic atrial fibrillation, hyperlipidemia, hypertension and hypertensive cardio vascular disease, memory impairment, possible prostate cancer, patient lives alone and he gets some help from his family members including his daughter. Patient stated that on Friday he was standing in the kitchen is back to the generator and suddenly he passed out without any warning symptoms he was not dizzy or lightheaded at that time. Patient lost consciousness for a few seconds and he found himself on the floor he ended up the skinning his left knee and left elbow, and that time his daughter wanted to bring into the emergency department on Friday evening however the patient refused, patient did well after 48 hours until yesterday when he developed to have his another syncopal episode while standing up without any dizziness or lightheadedness at that time. Without any palpitation he came to the ER and he had some significant pain in the left rib cage, x-ray did not show any evidence of any fracture however the patient was admitted to hospital for possible cardiac arrhythmias. His troponin was slightly elevated however did not appear to have an acute coronary syndrome. Patient Kavitha kaminski was quite resistant was started on Cardizem and then amiodarone and digoxin and an amiodarone drip he was seen cardiology in the emergency room continue current treatment his only on anticoagulation decided not to further anticoagulated this point. Dr. Shelley to evaluate. His troponin was mildly elevated consistent with acute kidney injury but most likely hypoperfusion with his rapid ventricular response with his A. yamilex known to cardiology known to have coronary disease not able to do any invasive testing. Also patient known to have tachybradycardia syndrome was evaluated previously for pacemaker patient had refused it. Since his fall over 2 weeks ago patient has been having difficult time ambulating specially with the right hip pain with no sign of fracture. 04/16: Patient has been seen by Dr. Carlson in for symptomatic atrial flutter with recommendations for either atrial flutter ablation or permanent pacing. Echocardiogram reveals EF of less than 20%, no evidence of pulmonary hypertension, severe global hypokinesia of the LV, mild tricuspid regurgitation , mild aortic valve sclerosis, mild mitral calcification. His heart rate continues to run in the 130s with blood pressure on the lower side. On hip and pelvis x-ray, there is an abnormal lucency in the acetabulum suspicious for metastatic lesion. Recommend pelvis CAT scan or MRI. There is no acute fracture or dislocation of the pelvis or right hip. Based on all the above information, this was discussed in detail with patient's daughter and she wishes to take the patient home with hospice care. His daughter had met with the [facility] and hospice yesterday. Patient will be discharged home today in stable condition. Xarelto, aspirin and Lipitor will be discontinued. Dr. Shelley is recommended changing Coreg to metoprolol and amiodarone at 100 mg daily only. Discharge diagnoses: 1 non-ST HI: Most likely ischemic cardiac disease with elevated troponin with consistent chest pain and tachycardia 2 A. fib/flutter with RVR 3 recurrent angina: Most likely caused by hypoperfusion from the A. flutter with RVR. 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 Venus Blair nurse practitioner acting as scribe for signing physician. Patient Condition at Discharge: Good Plan - Discharge Summary New Discharge Prescriptions: New Amiodarone [Cordarone] 100 mg PO DAILY #30 tab LORazepam ORAL CONC [Ativan Intensol] 2 mg PO Q4H PRN #30 ml PRN Reason: Anxiety Metoprolol Tartrate 12.5 mg PO BID #15 tab MORPHINE ORAL SOLN 20mg/mL [Roxanol Oral Soln Conc 20MG/ML] 5 mg PO Q4H PRN # 30 ml PRN Reason: Pain Continue Ipratropium-Albuterol Nebulize [Duoneb 0.5 mg-3 mg/3 ml Soln] 3 ml INHALATION RT-QID Spironolactone [Aldactone] 12.5 mg PO MOWEFR Losartan [Cozaar] 25 mg PO DAILY [facility] Wound Gel 1 applic TOPICAL DAILY Discontinued Rivaroxaban [Xarelto] 15 mg PO DAILY Carvedilol [Coreg] 3.125 mg PO DAILY Atorvastatin [Lipitor] 80 mg PO HS Discharge Medication List Ipratropium-Albuterol Nebulize [Duoneb 0.5 mg-3 mg/3 ml Soln] 3 ml INHALATION RT -QID 04/14/17 [History] Losartan [Cozaar] 25 mg PO DAILY 04/14/17 [History] [facility] Wound Gel 1 applic TOPICAL DAILY 04/14/17 [History] Spironolactone [Aldactone] 12.5 mg PO MOWEFR 04/14/17 [History] Amiodarone [Cordarone] 100 mg PO DAILY #30 tab 04/16/17 [Rx] LORazepam ORAL CONC [Ativan Intensol] 2 mg PO Q4H PRN #30 ml 04/16/17 [Rx] MORPHINE ORAL SOLN 20mg/mL [Roxanol Oral Soln Conc 20MG/ML] 5 mg PO Q4H PRN #30 ml 04/16/17 [Rx] Metoprolol Tartrate 12.5 mg PO BID #15 tab 04/16/17 [Rx] Follow up Appointment(s)/Referral(s): Rich Og MD [Primary Care Provider] - As Needed Patient Instructions/Handouts: Atrial Fibrillation (DC) Discharge Disposition: HOME WITH HOSPICE
--- NOTE | 2017-04-16 14:03 | P.PN ---
Progress Note - Text Mr. Garcia is found to have a bone lesion suggestive of metastasis In view of that the plan for atrial flutter ablation has been canceled and he will be switched over to hospice care. I did discuss this with his daughter and she would like it this way
== END 2017-04-16 14:33 | disposition hospice, home (50) | DRG 281 ==
LOC: EC 16:38 → 6SEL 21:47
PROVIDERS: ADMIT Internal Medicine Geriatric Medicine; ATTEND Internal Medicine Geriatric Medicine
DX: I21.4 Non-ST elevation (NSTEMI) myocardial infarction (principal); I13.0 Hypertensive heart and chronic kidney disease with heart failure and stage 1 through stage 4 chronic kidney disease, or unspecified chronic kidney disease; N17.9 Acute kidney failure, unspecified; I45.2 Bifascicular block; I48.92 Unspecified atrial flutter; I50.22 Chronic systolic (congestive) heart failure; I49.5 Sick sinus syndrome; I08.2 Rheumatic disorders of both aortic and tricuspid valves; D63.8 Anemia in other chronic diseases classified elsewhere; C44.90 Unspecified malignant neoplasm of skin, unspecified; G30.9 Alzheimer's disease, unspecified; F02.80 Dementia in other diseases classified elsewhere, unspecified severity, without behavioral disturbance, psychotic disturbance, mood disturbance, and anxiety; I48.0 Paroxysmal atrial fibrillation; I48.2 Chronic atrial fibrillation; I73.9 Peripheral vascular disease, unspecified; N18.3 Chronic kidney disease, stage 3 (moderate); E78.5 Hyperlipidemia, unspecified; H91.90 Unspecified hearing loss, unspecified ear; I25.119 Atherosclerotic heart disease of native coronary artery with unspecified angina pectoris; I25.2 Old myocardial infarction; I25.5 Ischemic cardiomyopathy; M89.9 Disorder of bone, unspecified; M19.90 Unspecified osteoarthritis, unspecified site; N42.9 Disorder of prostate, unspecified; M25.551 Pain in right hip; Z66 Do not resuscitate; Z79.01 Long term (current) use of anticoagulants; Z79.899 Other long term (current) drug therapy; Z95.1 Presence of aortocoronary bypass graft; Z91.041 Radiographic dye allergy status; Z82.49 Family history of ischemic heart disease and other diseases of the circulatory system
CPT/HCPCS: 36415; 71010; 73502; 80053; 80061; 82550; 82553; 83735; 83880; 84439; 84443; 84481; 84484; 85025; 85610; 85730; 93005; 93306; 94640; 94760; 96365; 96366; 96375; 99291